=== PATIENT | female | born 1980 | race Caucasian/White ===

== ENCOUNTER 2025-02-21 11:23 | Outpatient (AMB) | payer OTHER, SELFPAY ==
--- NOTE | 2025-02-21 11:42 | A.OFFPC_ITS ---
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 Required: No Allergies cephalexin (From Keflex) Allergy (Mild, Verified 02/21/25 11:42) Hives Medication List - Last Reconciled 02/21/25 by Bri Quevedo PA-C enalapril maleate mg PO sertraline 25 mg PO DAILY Tobacco use date assessed: 02/21/25 Dental Screening Dental Screen Date: 02/21/25 Did you have a dental visit in the last 12 months?: Yes Did you have a dental problem in the last 6 months where you did not have access to dental care?: No Was dental information given to patient?: Patient has dentist HPI Referrals HPI Details Patient is a 44-year-old female with a significant past medical history of hypertension, obesity, generalized anxiety disorder, kidney stones and family history of breast cancer with a recent abnormal breast mammogram presenting today to establish care. Breast: Had a recent breast biopsy at the breast center and was told that it was normal. Has a follow up mammogram in 6 months. Uro: History of kidney stones and hematuria. Recently started with the increase hematuria again and is scheduled for an ultrasound on 03/04. Has follow up with [facility]. Needs an insurance referral. General: Does feel very tired and not rested. She states that her ex has been told her she has to stop breathing at times and her kids tell her that she snores all the time. CV: Blood pressure today in the office is 106/82. On enalapril 5 mg daily. Psych: Well-controlled with sertraline 25 mg Avionics Technician: Up-to-date Mammo: Up-to-date at [facility] Surgical History (Updated 02/21/25 @ 11:49 by Tamara López CMA) H/O breast augmentation H/O tubal ligation Family History (Updated 02/21/25 @ 11:52 by Tamara López CMA) Mother HTN (hypertension) High blood cholesterol Breast cancer Depression Father HTN (hypertension) High blood cholesterol Lung cancer Alcohol abuse Maternal Grandmother HTN (hypertension) Cardiovascular disease Breast cancer Lung cancer Maternal Grandfather HTN (hypertension) High blood cholesterol Bladder cancer Other FHx: mental illness Substance abuse Social History (Updated 02/21/25 @ 13:38 by Tamara López [facility]) Housing: Apartment Alcohol intake: current Patient Tobacco Use Status: Never used Tobacco e-Cigarette/Vaping Use: Never Used service: No Current occupational status: employed 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 1. Little interest or pleasure in doing things: not at all 2. Feeling down, depressed, or hopeless: not at all 3. Trouble falling or staying asleep, or sleeping too much: not at all 4. Feeling tired or having little energy: several days 5. Poor appetite or overeating: not at all 6. Feeling bad about yourself - or that you are a failure or have let yourself or your family down: not at all 7. Trouble concentrating on things, such as reading the newspaper or watching television: not at all 8. Moving or speaking so slowly that other people could have noticed. Or the opposite - being so fidgety or restless that you have been moving around a lot more than usual: not at all 9. Thoughts that you would be better off or of hurting yourself in some way: not at all Total score: 1 Depression Screening Interpretation: Negative Depression Screening Done: Yes 06549 - PHQ-9 Billing: Yes Source: Developed by Drs. Chava Hogan, Maribel More, Otto Ramsey and colleagues, with an educational vinny from [employer]. Thrive Questionnaire Date Thrive assessed: 02/21/25 I am a: Patient What is your living situation today?: I have a steady place to live Within the past 12 months, did the food you bought not last and you didn't have the money to get more?: Never true Within the past 12 months, did you worry whether your food would run out before you got money to buy more?: Never true Do you have trouble paying for medicines?: No Do you have trouble getting transportation to medical appointments?: No Do you have trouble paying your heating and electricity bill?: No Do you have trouble taking care of your child, family member or friend?: No Do you have trouble with day-to-day activities such as bathing, preparing meals, shopping, managing finances, etc.?: No Are you currently unemployed and looking for a job?: No Are you interested in more education?: No Please select the resources that you would like help with: None Currently or been in a relationship where the following occur: No concerns reported THRIVE Score: 0 AUDIT C Alcohol Use Questionnaire (AUDIT-C) 1. How often do you have a drink containing alcohol?: Monthly or less 2. How many drinks containing alcohol do you have on a typical day when you are drinking?: 1 or 2 3. How often do you have six or more drinks on one occasion?: Never Total Score: 1 EVER-7 AMB Questionnaire EVER-7 Date EVER - 7 assessed: 02/21/25 Feeling nervous, anxious, or on edge: 1 = Several days Not being able to stop or control worryin = Not at all Worrying too much about different things: 1 = Several days Trouble relaxin = Several days Being so restless that it is hard to sit still: 0 = Not at all Becoming easily annoyed or irritable: 2 = More than half the days Feeling afraid as if something awful might happen: 0 = Not at all Total EVER-7 score (0-4 normal; 5-9 mild; 10-14 moderate; 15-21 severe): 5 Source: Developed by Drs. Chava Hogan, Maribel More, Otto Ramsey and colleagues, with an educational vinny from [employer]. EVER-7 Assessment Billing EVER-7 Assessment Tool: EVER-7 Assessment 73563 Physical exam (Primary Care) Vital Signs: Last Vital Signs Temp 97.8 F 02/21/25 11:45 Pulse 78 02/21/25 11:45 Resp 14 02/21/25 11:45 BP 106/82 02/21/25 11:45 Pulse Ox 98 02/21/25 11:45 Oxygen Delivery Method Room Air 02/21/25 11:45 BMI result Body Mass Index 40.3 Tobacco/Smoking Status: Tobacco use Status Tobacco use date assessed 02/21/25 02/21/25 13:39 Patient Tobacco Use Status Never used Tobacco 02/21/25 13:39 e-Cigarette/Vaping Use Never Used 02/21/25 13:39 PHQ-9: PHQ-9 Score PHQ-9: Total score 1 02/21/25 15:39 Depression Screening Interpretation: Negative Thrive Assessment: Date of Thrive Assessment Date Thrive assessed 02/21/25 02/21/25 11:52 Currently or been in a relationship where the following occur: No concerns reported Const Orientation/consciousness: patient oriented x3 HENMT Ears: hearing grossly normal bilaterally Neck Thyroid: Thyroid normal Lymphatic: no lymphadenopathy noted Resp Auscultation: clear to auscultation bilaterally Cardio Rate: regular rate Rhythm: regular rhythm Heart sounds: S1 normal heart sound present and S2 normal heart sound present GI Inspection: Yes normal to inspection Palpation (GI): Soft to palpation and Other GI palpation findings present (nontender, no cva tenderness) Auscultation: normoactive bowel sounds Rectal Exam - Female: deferred Skin General skin exam: no rashes or lesions noted Neuro General: patient oriented x3, gait normal and no focal motor deficits Coding Level of Care Code New Pt Level 4 (20123) Complex EM visit Add On G2211 Diagnoses Severe obesity (BMI >= 40) E66.01 HTN (hypertension) I10 Witnessed episode of apnea R06.81 Fatigue R53.83 Generalized anxiety disorder F41.1 Kidney stones N20.0 Abnormal mammogram of left breast R92.8 Additional Codes EVER-7 Assessment Billing - EVER-7 Assessment Tool: EVER-7 Assessment 89780 ([id number]) PHQ-9 - 52063 - PHQ-9 Billing: Yes ([id number]) Assessment & Plan Assessment & Plan (1) Severe obesity (BMI >= 40): Code(s): E66.01 - Morbid (severe) obesity due to excess calories Category: Medical Plan: Discussed diet and weight loss. We also reviewed GLP ones (2) HTN (hypertension): Code(s): I10 - Essential (primary) hypertension Category: Medical Plan: Continue current regimen (3) Witnessed episode of apnea: Code(s): R06.81 - Apnea, not elsewhere classified Category: Medical Plan: Sleep study and referral to sleep Medicine ordered (4) Fatigue: Code(s): R53.83 - Other fatigue Category: Medical Plan: As above. Labs ordered (5) Generalized anxiety disorder: Code(s): F41.1 - Generalized anxiety disorder Category: Medical Plan: Well-controlled continue current regimen (6) Kidney stones: Code(s): N20.0 - Calculus of kidney Category: Medical Plan: Referral to [facility] (7) Abnormal mammogram of left breast: Code(s): R92.8 - Other abnormal and inconclusive findings on diagnostic imaging of breast Category: Medical Plan: Continue follow up with breast center. Orders: Orders Comprehensive [place]. Panel Fast Today E66.01 - Morbid (severe) obesity due to excess calories, F41.1 - Generalized anxiety disorder, I10 - Essential (primary) hypertension, N20.0 - Calculus of kidney, R06.81 - Apnea, not elsewhere classified, R53.83 - Other fatigue, R92.8 - Other abnormal and inconclusive findings on diagnostic imaging of breast, Z80.3 - Family history of malignant neoplasm of breast Lipid Panel Today E66.01 - Morbid (severe) obesity due to excess calories, F41.1 - Generalized anxiety disorder, I10 - Essential (primary) hypertension, N20.0 - Calculus of kidney, R06.81 - Apnea, not elsewhere classified, R53.83 - Other fatigue, R92.8 - Other abnormal and inconclusive findings on diagnostic imaging of breast, Z80.3 - Family history of malignant neoplasm of breast UA CC w/rflx Micro + Cult Today E66.01 - Morbid (severe) obesity due to excess calories, F41.1 - Generalized anxiety disorder, I10 - Essential (primary) hypertension, N20.0 - Calculus of kidney, R06.81 - Apnea, not elsewhere classified, R53.83 - Other fatigue, R92.8 - Other abnormal and inconclusive findings on diagnostic imaging of breast, Z13.220 - Encounter for screening for lipoid disorders, Z80.3 - Family history of malignant neoplasm of breast Hemoglobin A1c Today E66.01 - Morbid (severe) obesity due to excess calories, F41.1 - Generalized anxiety disorder, I10 - Essential (primary) hypertension, N20.0 - Calculus of kidney, R06.81 - Apnea, not elsewhere classified, R53.83 - Other fatigue, R73.01 - Impaired fasting glucose, R92.8 - Other abnormal and inconclusive findings on diagnostic imaging of breast, Z80.3 - Family history of malignant neoplasm of breast Complete Blood Count Auto Diff Today E66.01 - Morbid (severe) obesity due to excess calories, F41.1 - Generalized anxiety disorder, I10 - Essential (primary) hypertension, N20.0 - Calculus of kidney, R06.81 - Apnea, not elsewhere classified, R53.83 - Other fatigue, R92.8 - Other abnormal and inconclusive findings on diagnostic imaging of breast, Z80.3 - Family history of malignant ne oplasm of breast TSH reflex Free T4 Today E66.01 - Morbid (severe) obesity due to excess calories, F41.1 - Generalized anxiety disorder, I10 - Essential (primary) hypertension, N20.0 - Calculus of kidney, R06.81 - Apnea, not elsewhere classified, R53.83 - Other fatigue, R92.8 - Other abnormal and inconclusive findings on diagnostic imaging of breast, Z80.3 - Family history of malignant neoplasm of breast Microalbumin, Random (w Creat) Today E66.01 - Morbid (severe) obesity due to excess calories, F41.1 - Generalized anxiety disorder, I10 - Essential (primary) hypertension, N20.0 - Calculus of kidney, R06.81 - Apnea, not elsewhere classified, R53.83 - Other fatigue, R92.8 - Other abnormal and inconclusive findings on diagnostic imaging of breast, Z80.3 - Family history of malignant neoplasm of breast RT home sleep study Today R06.81 - Apnea, not elsewhere classified Referrals Sleep Medicine Referral E66.01 - Morbid (severe) obesity due to excess calories, R06.81 - Apnea, not elsewhere classified, R53.83 - Other fatigue Urology Referral N20.0 - Calculus of kidney
[2025-02-21 11:45] VITALS: BP 106/82; PULSE 78; RESP 14; TEMP 36.6; O2SAT 98; BMI 40.3
--- OUTSIDE RECORDS SUMMARY | 2025-02-21 12:11 | XMS_ITS | Clinical Summary ---
Author Organization [facility] Address [address] [place] [address] Care Team Providers Care Hl7 Developer Name Role Phone Renetta Aguero MD Primary Care Provider Unav ailable Allergies Active Allergy Reactions Criticality Noted Date Comments Cephalexin Rash Low 02/08/2023 Lobster 03/28/2024 Shrimp Anaphylaxis High 02/08/2023 Medications Medication Sig Dispensed Refills Start Date End Date Status sertraline (ZOLOFT) 25 MG tablet Take 1 tablet (25 mg total) by mouth daily. 0 08/23/2023 Active Probiotic Product (PROBIOTIC PO) Take by mouth. 0 Active Multiple Vitamin (MULTI VITAMIN PO) Take by mouth. 0 Ac tive enalapril (VASOTEC) 5 MG tablet Take 1.5 tablets (7.5 mg total) by mouth daily. 135 tablet 1 05/03/2024 Active Active Problems No known active problems Family History Medical History Relation Name Comments Anxiety disorder Brother Alcohol abuse Father Cancer Father Lung Drug abuse Father Hypertension Father Cancer Maternal Grandfather Hyperlipidemia Maternal Grandfather Hypertension Maternal Grandfather Cancer Maternal Grandmother Heart disease Maternal Grandmother Hyperlipidemia Maternal Grandmother Hypertension Maternal Grandmother Stroke Maternal Grandmother Cancer Mother Breast Hyperlipidemia Mother Hypertension Mother Alcohol abuse Sister Depression Sister Drug abuse Sister Relation Name Status Comments Brother Father Alive Maternal Grandfather Maternal Grandmother Mother Alive Paternal Grandfather Paternal Grandmother Sister Social History Tobacco Use Types Packs/Day Years Used Date Smoking Tobacco: Never Smokeless Tobacco: Never Tobacco Cessation:Counseling Given: Not Answered Alcohol Use Standard Drinks/Week Comments Yes 0 (1 standard drink = 0.6 oz pur e alcohol) rare Sex and Gender Information Value Date Recorded Sex Assigned at Female 08/31/2023 10:34 AM EST Gender Identity Female 08/31/2023 10:34 AM EST Sexual Orientation Not on file Job Start Date Occupation Industry Not on file Not on file Not on file Last Filed Vital Signs Vital Sign Reading Time Taken Comments Blood Pressure 130/82 05/01/2024 4:14 PM EDT man ual Pulse 93 05/01/2024 4:14 PM EDT Temperature 36.8 C (98.2 F) 05/01/2024 4:14 PM EDT Respiratory Rate - - Oxygen Saturation 98% 05/01/2024 4:14 PM EDT Inhaled Oxygen Concentration - - Weight 97.1 kg (214 lb) 05/01/2024 4:14 PM EDT Height 160 cm (5' 3 ) 05/01/2024 4:14 PM EDT Body Mass Index 37.91 05/01/2024 4:14 PM EDT Plan of Treatment Health Maintenance Due Date Last Done Comments Hepatitis B Vaccines (1 of 3 - 3-dose series) 1981 Hepatitis C Screening 1981 Preventative Health Evaluation 11/25/1999 DTap / Tdap / Td (1 - Tdap) 2000 Cervical Cancer Screening (Pap Smear) 2002 COVID-19 Vaccine ( season) 2024 11/25/2020, 11/04/2020 Depression Screening 11/15/2024 11/16/2023 BMI Counseling 03/28/2025 03/28/2024, 11/21, 11/16/2023 Influenza Vaccine (Season Ended) 2025 07/19/2023, 06/18/2022, 06/28/2019, Additional history exists Pneumococcal Vaccine Aged Out No long er eligible based on patient's age to complete this topic RSV Ped < 20 months Aged Out No longe r eligible based on patient's age to complete this topic Insurance Payer Benefit Plan / Group Subscriber ID Effective Dates Phone Address [facility] [id number] 2022-Re [address] [facility] [address] [place] [address] HMO Care Teams Hl7 Developer Relationship Specialty Start Date End Date Renetta Aguero MD PCP - General Internal Medicine 11/16/23
--- OUTSIDE RECORDS SUMMARY | 2025-02-21 12:11 | XMS_ITS | Data Portability ---
Author Organization [place] [facility] Address [address] [place] [id number] Care Team Providers Care Security Architect Name Role Phone ZACK BURDICK Primary Care Provider Assessment Encounter Date Assessment Date Assessment LastModified by Organization Details LastModified Time 08/16/2021 08/16/2021 Proper Personal Protective Equipment (PPE), including gloves, eye protection and masks were donned and doffed appropriately and all equipment cleaned using approved technique with germicidal disposable wipes prior to and after care of this patient according to [facility]'s infection prevention protocols. Overview/History : 40 yo female with 5 days of left ear pain seen by urgent care who prescribed sour candies and flonse which has not provided any benefit. She called as they appearance and soreness continue to worsen Exam: left external ear with edema and mild erythema, left canal with edema and mild erythema, left TM with mild bulge and fluid level beyond it. no erythema/ exudate noted in oropharynx, moist mucous membranes, solitary enlarged cervical LN on the left inferior to the ear. NO MASTOID TENDERNESS. R sided Ear exam wnl DDx considered, but not limited to: AOM - most likley dx given exam AOE - most likley dx given exam Mastoiditis - no headache, no mastoid tenderness or erythema Parotitis/saliva ry gand swelling - angle of jaw not involved, no facial swelling lymphadenitis - solitary swollen lymph node most likely reactive in nature Work up/Results: N/A Plan/Discussion: -pt appears to have AOE and AOM on exam -nontoxic appearing NAD AVSS -will tx with po abx and topical gtts -doxycyline and Kieran/HC/Polym gtts -if appearance worsens, headaches begin, fevers develop, or mastoid becomes tender seek emergent re-eval In order to obtain further information and compare any laboratory results/values, I have accessed . This information was pertinent in my medical decision making today. [email or web address] Not available 08/16/2021 11:21:16 Plan of Treatment Reminders Order Date Submit Date Provider Last Modified By Organization Details Last Modified Time Details Appointments None recorded. Lab None recorded. Referral None recorded. Procedures None recorded. Surgeries None recorded. Imaging None recorded. Medication Orders neomycin-po lymyxin-hyd rocort 3.5 mg-10,000 unit/mL-1 % ear drops,susp 2020 [facility][id number], [address] [place], [address], 11:02:56 doxycycline hyclate 100 mg capsule 2020 [facility]armacy #[id number], [address] [place], [address], 11:02:56 Patient TargetsNo targets recorded. Patient Instructions Encounter Date Encounter Id Patient Instructions Last Modified By Organization Details Last Modified Time 08/16/2021 [id number] Thank you for yo ur visit with [facility] today. We cannot always find the exact cause of your symptoms during your initial visit. Please follow up with your primary care provider or specialist to be rechecked or seek medical attention if your symptoms do not go away or get worse. If you develop any new or worsening symptoms and need after hours care, please go to nearest ER and/or call 911. If you have additional concerns or develop a change in your condition between 8am-10pm, please call [facility] at [phone] to help navigate your care. [email or web address] Not available 08/16/2021 10:52:42 Reason for Referral None Reported. Medical Equipment None Reported. Medications Name Sig Start Date Stop Date Status Note LastModified by Organization Details LastModified Time acetaminophen 325 mg tablet active Not Available Not Availabl e Not Available doxycycline hyclate 100 mg capsule Take 1 capsule twice a day by oral route for 7 days. active Not Available Not Available No t Available ibuprofen 800 mg tablet active Not Available Not Available No t Available fluconazole 150 mg tablet TAKE 1 TABLET BY MOUTH. REPEAT AFTER 48 HOURS. active Not Available Not Available No t Available metronidazole 0.75 % (37.5 mg/5 gram) vaginal gel active Not Available Not Available Not Available ondansetron HCl 4 mg tablet TAKE 1 TABLET EVERY 8 HOURS NEEDED FOR SEVERE NAUSEA & VOMITING active Not Available Not Available No t Available metronidazole 250 mg tablet active Not Available Not Availabl e Not Available sulfamethoxazo le 800 mg-trimethopri m 160 mg tablet active Not Available Not Available Not Available hydromorphone 2 mg tablet active Not Available Not Available Not Available sertraline 25 mg tablet TAKE 1 TABLET BY MOUTH EVERY DAY active Not Available Not Available No t Available levofloxacin 750 mg tablet active Not Available Not Availabl e Not Available sertraline 50 mg tablet active Not Available Not Available No t Available lisinopril 2.5 mg tablet TAKE 1 TABLET BY MOUTH EVERY DAY active Not Available Not Available No t Available neomycin-polym yxin-hydrocort 3.5 mg-10,000 unit/mL-1 % ear drops,susp INSTILL 4 DROPS INTO LEFT EAR BY OTIC ROUTE 3 TIMES PER DAY FOR 7 DAYS active Not Available Not Available No t Available Incassia 0.35 mg tablet active Not Available Not Available No t Available Vitals Date Recorded Body temperature Respiratory rate Oxygen saturation Oxygen saturation in Arterial blood by Pulse oximetry Heart rate Systolic And Diastolic Provider Name and Address Organization Details Last Updated DateTime 1 97.3 [degF] 16 /min 98 % 98 % 82 /min 128/80 mm[Hg] Not Available [facility] 1 10:59:02 Social History None recorded. Functional Status None recorded. Mental Status None recorded. Family History Nothing Reported. Medical History No medical history recorded. Gynecological HistoryNo gynecological history recorded. Obstetrics History GPAL:G 0 P 0 0 0 0 Past Encounters Encounter ID Performer Location Encounter Start Date Encounter Closed Date Diagnosis/Indication Diagnosis SNOMED-CT Code Diagnosis ICD10 Code Diagnosis Note [id number] BEREKET Osullivan [facility] [address] [facility] [phone] 08/16/2021 10:51:21 08/16/2021 11:30:38 Otitis externa of left ear [id number] 931339 H60.92 Acute otitis media 63631 03 H66.92 Health Concerns Section Related Observation LastModified by Organization Sony larry LastModified Time None Recorded Concern Status LastModified by Organization Details LastModified Time None Recorded Advance Directives Directive None Recorded Payers Insurance Date Sequence Insurance Name Policy Number Policy Rao Covered Member ID Rao Member ID Guarantor Name 08/16/2021 1 *SELF PAY* Aleah Padron [id number] Aleah Padron 08/16/2021 1 LEXIE [id number] Chilo Padron [id number] Aleah Nereida Notes Date Note Type Note Provider Name and Address Organization Details Recorded Time 08/16/2021 text/html 40 yo female new to provider and DHshe reprots LEFT ear painstarted tuesday (5 days earlier)went to urgent care 3 days agotx her with flonase and sour candiespt feels it is getting worseno fevers chillsno hx of similar symptomshas not had an recent piercings or trauma to the [place] swimming BEREKET Osullivan [address], [place], [address], [place] [facility] 08/16/2021 11:21:27 OBGyn Episode No OBEpisode recorded.
--- OUTSIDE RECORDS SUMMARY | 2025-02-21 12:11 | XMS_ITS ---
Author Name [facility] Organization Unknown History of Medication Use Medication Directions Dispensed Refills Start Date End Date Stat us sertraline (ZOLOFT) 25 mg tablet Take 1.5 tablets (37.5 mg total) by mouth 1 (one) time each day. 11/15/2024 active enalapril (VASOTEC) 5 mg tablet TAKE 1 & 1/2 TABLETS BY MOUTH DAILY. 11/13/2024 active sertraline (ZOLOFT) 25 mg tablet Take 1 tablet (25 mg total) by mouth 1 (one) time each day. 08/28/2024 11/15/2024 aborted moexipril (UNIVASC) 7.5 MG tablet Take 1 tablet (7.5 mg total) by mouth every night at bedtime. 12/13/2023 03/28/2024 active sertraline (ZOLOFT) 25 MG tablet Take 1 tablet (25 mg total) by mouth daily. 08/23/2023 active sertraline (ZOLOFT) 25 MG tablet Take 1 tablet (25 mg total) by mouth daily. 08/23/2023 active lisinopril (PRINIVIL,ZeSTRIL) 2.5 MG tablet lisinopril 2.5 mg tablet TAKE 1 TABLET BY MOUTH EVERY DAY active Multiple Vitamin (MULTI VITAMIN PO) Take by mouth. ac tive multivitamin tablet Take by mouth. active Allergies Allergen Reaction Severity Comment Documented Date Source Statu s LOBSTER 03/28/2024 [facility] active SHRIMP ANAPHYLAXIS 02/08/2023 [facility] active CEPHALEXIN RASH/DERMATITIS [facility] Problems Problem Status Onset Date Problem Type Date of Resolution Source Generalized anxiety disorder active 2024-11-15 ProblemAct [facility] Primary hypertension active 2024-11-15 ProblemAct [facility] Primary hypertension active EncounterDiagnosisAct [facility]JM H Depression, unspecified depression type active EncounterDiagnosisAct CTT [facility] Sore throat active EncounterDiagnosisAct CCT Strep pharyngitis [facility] Immunizations Vaccine Date Source Lot Number Status Influenza trivalent, 0.5mL, preservative free (Fluarix; FluLaval; Fluzone) ages 6mo and older (Afluria) 3 years and older 07/19/20[address] [facility] [id number] completed Tdap Tetanus diptheria acell ular pertussis (Boostrix; Adacel) 7yo and older 07/19/2023 [facility] [id number] completed Influenza trivalent, with pr eservative (Fluzone; Afluria) 6mo and older 06/18/2022 [facility] [id number] completed Better Bean SARS-CoV-2 COVID-19, mRNA, LNP-S, preservative free [id number] Better Bean SARS-CoV-2 COVID-19, mRNA, LNP-S, preservative free 11/04/2020 [id number] completed Influenza trivalent, with pr eservative (Fluzone; Afluria) 6mo and older 06/28/2019 [facility] [id number] completed Influenza Whole 05/18/2019 [facility] UNK completed Influenza trivalent, with pr eservative (Fluzone; Afluria) 6mo and older 06/26/2018 [facility] [id number] completed Influenza trivalent, with pr eservative (Fluzone; Afluria) 6mo and older 06/27/2017 [facility] UNK completed Influenza trivalent, with pr eservative (Fluzone; Afluria) 6mo and older 06/03/2016 [facility] [id number] completed Influenza trivalent, with pr eservative (Fluzone; Afluria) 6mo and older 10/21/2011 [facility] [id number] completed Tdap Tetanus diptheria acell ular pertussis (Boostrix; Adacel) 7yo and older 10/21/2011 [facility] [id number] completed Encounters Encounter Type Encounter Reason Primary Diagnosis Location Date Ambulatory Encounter for general adult medical examination without abnormal findings Encounter for general adult medical examination without abnormal findings [facility] 11/15/2024 Ambulatory Essential (primary) hypertension Essential (primary) hypertension [facility] 03/28/2024 Ambulatory Streptococcal pharyngitis [place] 02/08/2023 Care Team Organization Name Specialty Phone Email Start Date End Da te [facility]/20/2024 [facility] 11/15/2024 [facility] 03/30/2024 [facility] 03/28/2024 [place] 02/08/2023 02/08/2023 [place] 02/08/2023
== END 2025-02-21 12:41 | disposition home or self-care (01) ==
LOC: HO.HMCFM 11:24
PROVIDERS: PCP Physician Assistant; Visit Provider Physician Assistant
DX: I10 Essential (primary) hypertension (principal); E66.01 Morbid (severe) obesity due to excess calories; Z68.41 Body mass index [BMI] 40.0-44.9, adult; R06.81 Apnea, not elsewhere classified; R53.83 Other fatigue; F41.1 Generalized anxiety disorder; N20.0 Calculus of kidney; R92.8 Other abnormal and inconclusive findings on diagnostic imaging of breast

== ENCOUNTER → 2025-02-21 11:23 | Outpatient (BNVA) | payer OTHER, SELFPAY | PROVIDERS: PCP Physician Assistant; Visit Provider Physician Assistant | DX: I10 Essential (primary) hypertension (principal); E66.01 Morbid (severe) obesity due to excess calories; F41.1 Generalized anxiety disorder; R06.81 Apnea, not elsewhere classified; R53.83 Other fatigue; R92.8 Other abnormal and inconclusive findings on diagnostic imaging of breast; N20.0 Calculus of kidney; Z68.41 Body mass index [BMI] 40.0-44.9, adult | CPT/HCPCS: 96127 ==

== ENCOUNTER 2025-03-13 09:06 | Outpatient (REF) | payer OTHER, SELFPAY ==
--- OUTSIDE RECORDS SUMMARY | 2025-03-13 09:36 | XMS_ITS | Clinical Summary ---
Author Organization [facility] Address [address] [place] [id number] Care Team Providers Care X Ray Physician Name Role Phone Pcp, No Primary Care Provider Unavailabl e Allergies Active Allergy Reactions Criticality Noted Date Comments Cephalexin Rash/Dermatitis Low 02/08/2023 Other, Food Anaphylaxis High 02/08/2023 cradb Shrimp Anaphylaxis High 02/08/2023 Medications sertraline (ZOLOFT) 50 MG tablet sertraline 50 mg tablet Active lisinopril (PRINIVIL,ZeSTRI L) 2.5 MG tablet lisinopril 2.5 mg tablet TAKE 1 TABLET BY MOUTH EVERY DAY Active amoxicillin (AMOXIL) 500 MG capsuleIndicatio ns:Strep pharyngitis Take 1 capsule (500 mg total) by mouth 2 (two) times a day. 20 capsule 3 Active Social History Tobacco Use Types Packs/Day Years Used Date Smoking Tobacco: Never Assessed Comments Unknown Sex and Gender Information Value Date Recorded Sex Assigned at Female 02/08/2023 6:09 PM EDT Legal Sex Female 6:07 PM EDT Gender Identity Not on file Sexual Orientation Not on file Last Filed Vital Signs Vital Sign Reading Time Taken Comments Blood Pressure 144/93 02/08/2023 6:48 PM EDT Pulse 88 02/08/2023 6:48 PM EDT Temperature 36.7 C (98.1 F) 02/08/2023 6:48 PM EDT Respiratory Rate - - Oxygen Saturation 98% 02/08/2023 6:48 PM EDT Inhaled Oxygen Concentration - - Weight - - Height - - Body Mass Index - - Plan of Treatment Health Maintenance Due Date Last Done Comments Hepatitis C Virus Screening 1981 HIV Screening 1994 DTaP/Tdap/Td Vaccines (1 - Tdap) 2000 Hepatitis B Vaccines (1 of 3 - 19+ 3-dose series) 2000 Pap Smear (Ages 21-65) 2002 Mammogram 2021 COVID-19 Vaccine (3 - 2023- season) 2024 11/25/2020, 11/04/2020 Influenza Vaccine 03/22/2025 06/18/2022, , 05/18/2019, Additional history exists HPV Vaccines Aged Out No longer eligi ble based on patient's age to complete this topic Pneumococcal Vaccine: Pediatric (0-5 Years) and At-Risk Patients (6 to 49 Years) Aged Out No longer eligible based on patient's age to complete this topic Insurance [facility] Care Teams X Ray Physician Relationship Specialty Start Date End Date Pcp, No [address] [place] [address] PCP - General 02/07/23
--- OUTSIDE RECORDS SUMMARY | 2025-03-13 09:36 | XMS_ITS | Clinical Summary ---
Author Organization [facility] [address] Building Address [address] [place] [address] Phone Care Team Providers Care Psychological Aide Name Role Phone Renetta Aguero MD Primary Care Provider [phone] Allergies Active Allergy Reactions Criticality Noted Date Comments Cephalexin Rash Low 02/08/2023 Lobster 03/28/2024 Shrimp Anaphylaxis High 02/08/2023 Medications multivitamin tablet Take by mouth. Active Lactobacillus acidophilus (PROBIOTIC ORAL) Take by mouth. Active enalapril (VASOTEC) 5 mg tablet TAKE 1 & 1/2 TABLETS BY MOUTH DAILY. 135 tablet 1 11/13/2024 Active sertraline (ZOLOFT) 25 mg tablet Take 1.5 tablets (37.5 mg total) by mouth 1 (one) time each day. 135 tablet 1 11/15/2024 Active Active Problems Problem Noted Date Diagnosed Date Generalized anxiety disorder 11/15/2024 Primary hypertension 11/15/2024 Encounters Date Type Department Care Team Description 02/15/2025 Lab Requisition [facility] - Main Lab [address] [place] [id number] Harsha Hurtado MD Gross hematuria 01/28/2025 Telephone Internal Medicine - [place] [address] [place] [address] Blanquita Lemus MA from Last 3 Months Immunizations Name Administration Dates Next Due Influenza Whole 05/18/2019 Influenza trivalent, 0.5mL, preservative free (Fluarix; FluLaval; Fluzone) ages 6mo and older (Afluria) 3 years and older 07/19/2023 Influenza trivalent, with preservative (Fluzone; Afluria) 6mo and older 06/18/2022,06/28/2019,06/26/2018,2016,06/03/2016,10/21/2011 Pfizer SARS-CoV-2 COVID-19, mRNA, LNP-S, preservative free 11/25/2020,11/04/2020 Tdap Tetanus diptheria acell ular pertussis (Boostrix; Adacel) 7yo and older 07/19/2023,10/21/2011 Surgical History Surgery Date Site/Laterality Comments BREAST SURGERY PROCEDURE:BREAST SURGERY TUBAL LIGATION PROCEDURE:TUBAL LIGATION Medical History Medical History Date Comments Anxiety DX:Anxiety Depression DX:Depression Hypertension DX:Hypertension ADHD (attention deficit hyperactivity disorder) Obesity Family History Medical History Relation Name Comments Anxiety disorder Brother 1 Alcohol abuse Brother 2 Brother Drug abuse Brother 2 Brother Alcohol abuse Father Father Cancer Father Father Lung cancer Drug abuse Father Father Hypertension Father Father Cancer Maternal Grandfather Pop Bladder Hyperlipidemia Maternal Grandfather Pop Hypertension Maternal Grandfather Pop Breast cancer Maternal Grandmother Grandma Cancer Maternal Grandmother Grandma Breast, lung Heart disease Maternal Grandmother Grandma Hyperlipidemia Maternal Grandmother Grandma Hypertension Maternal Grandmother Grandma Stroke Maternal Grandmother Grandma Breast cancer Mother Mother Cancer Mother Mother Breast Depression Mother Mother Hyperlipidemia Mother Mother Hypertension Mother Mother Alcohol abuse Sister Depression Sister Drug abuse Sister Relation Name Status Comments Brother 1 Brother 2 Brother Father Father Alive Maternal Grandfather Pop Maternal Grandmother Grandma Mother Mother Alive Paternal Grandfather Paternal Grandmother Sister Social History Tobacco Use Types Packs/Day Years Used Date Smoking Tobacco: Never Smokeless Tobacco: Never Tobacco Cessation:Counseling Given: Not Answered Alcohol Use Standard Drinks/Week Comments Yes 2 (1 standard drink = 0.6 oz pur e alcohol) Housing Instability Answer Date Recorde d Are you worried that in the next 2 months you may not have stable housing? No 11/14/2024 Food Access & Nutrition Answer Date Rec orded Do you have access to a vari ety of food including fruits and vegetables? Yes 11/14/2024 Access to Healthcare Answer Date Record ed Within the last 3 months, ho w many times did you visit the emergency department for your medical care? 0 11/14/2024 Health Literacy Answer Date Recorded How often do you need to hav e someone help you when you read instructions, pamphlets, or other written material from your doctor or pharmacy? Never 11/14/2024 Caregiver: How often do you need to have someone help you when you read instructions, pamphlets, or other written material from your doctor or pharmacy? Not on file 11/14/2024 Financial Risk Answer Date Recorded How hard is it for you to pa y for the very basics like food, housing, medical care, and air conditioning / heating? Not very hard 11/14/2024 Transportation Answer Date Recorded Has the lack of transportati on kept you from meetings, work, or from getting things needed for daily living? No Has the lack of transportati on kept you from medical appointments or from getting medications? No 11/14/2024 Social Isolation Answer Date Recorded How often do you feel lonely or isolated from th ose around you? Rarely 11/14/2024 Food Risk Answer Date Recorded Within the past 12 months we worried whether our food would run out before we got money to buy more. Never true 11/14/2024 Within the past 12 months th e food we bought just didn't last and we didn't have money to get more. Never true 11/14/2024 Dependent Care Answer Date Recorded Do you need help finding or paying for care for your loved ones. For example, child and family services specialist or elderly care for an older adult? No 11/14/2024 Education Answer Date Recorded Do you think completing more education or training, like finishing a GED, going to college, or learning a trade, would be helpful for you? Yes 11/14/2024 Employment and Income Answer Date Recor ded During the last four weeks, have you been actively looking for work? No 11/14/2024 Living Situation Answer Date Recorded What is your living situation? 0 11/14/2024 Comments Unknown Sex and Gender Information Value Date Recorded Sex Assigned at Not on file Legal Sex Female 4:48 PM EDT Gender Identity Not on file Sexual Orientation Not on file Obstetrics History Last Filed Vital Signs Vital Sign Reading Time Taken Comments Blood Pressure 117/77 11/15/2024 8:20 AM EDT Pulse 81 11/15/2024 8:20 AM EDT Temperature 36.7 C (98 F) 11/15/2024 8:20 AM EDT Respiratory Rate - - Oxygen Saturation 98% 11/15/2024 8:20 AM EDT Inhaled Oxygen Concentration - - Weight 99.8 kg (220 lb) 11/15/2024 8:20 AM EDT Height 160 cm (5' 3 ) 11/15/2024 8:20 AM EDT Body Mass Index 38.97 11/15/2024 8:20 AM EDT Plan of Treatment Upcoming Encounters Date Type Department Care Team (Late st Contact Info) Description 05/21/2025 8:30 AM EDT Office Visit Internal Medicine - [place] [address] [place] [address] Renetta Aguero MD [address] [place] [address] Health Maintenance Due Date Last Done Comments Hepatitis B Vaccines (1 of 3 - 19+ 3-dose series) 2000 Cervical Cancer Screening: Pap Smear 2002 Cholesterol Screening (Lipid Panel) 03/20/2024 HIV Screening 03/20/2024 Hepatitis C Screening 03/20/2024 COVID-19 Vaccine ( season) 2024 11/25/2020, 11/04/2020 Hypertension/CHF/CAD Annual BMP Blood Test 03/28/2025 03/28/2024, 03/28/2024, 03/28/2024 Influenza Vaccine (#1) 2025 , 06/18/2022, 06/28/2019, Additional history exists Social Influencers of Health Screening 11/14/2025 11/14/2024 Breast Cancer Screening 12/21/2026 12/21/2024 DTaP,Tdap,and Td Vaccines (3 - Td or Tdap) 07/19/2033 07/19/2023, 10/21/2011 Depression Screening Completed 11/14/2024, 11/16/19 24 HIB Vaccines Aged Out No longer eligi ble based on patient's age to complete this topic HPV Vaccines Aged Out No longer eligi ble based on patient's age to complete this topic Hepatitis A Vaccines Aged Out No long er eligible based on patient's age to complete this topic IPV Vaccines Aged Out No longer eligi ble based on patient's age to complete this topic MMR Vaccines Aged Out No longer eligi ble based on patient's age to complete this topic Meningococcal ACWY Vaccine Aged Out N o longer eligible based on patient's age to complete this topic Meningococcal B Vaccine Aged Out No l onger eligible based on patient's age to complete this topic Pneumococcal Vaccine: Pediatrics (0 to 5 Years) and At-Risk Patients (6 to 49 Years) Aged Out No longer eligible based on patient's age to complete this topic RSV Immunization Patients Under 20 months Aged Out No longer eligible based on patient's age to complete this topic Varicella Vaccines Aged Out No longer eligible based on patient's age to complete this topic Procedures Procedure Name Priority Date/Time Associated Diagnosis Comments AP OUTSIDE CONSULT Routine 02/06/2025 12 :00 AM EDT Gross hematuria EXTERNAL MAMMOGRAM REPORT 12/21/2024 ANNUAL BMP BLOOD TEST Routine 03/28/2024 DEPRESSION SCREENING Routine 11/16/2023 from Last 3 Months or Most Recently Relevant to Health Maintenance Results * Anatomic pathology outside consult (02/06/2025 12:00 AM EDT) Final Diagnosis Urine, Voided ([id number]): Negative for high grade urothelial carcinoma. Results of UroVysion fluorescence in situ hybridization (FISH) testing: CEP3: Normal CEP7: Normal CEP17: Normal LSI 9p21: Normal Interpretation: Normal profile Controls stained appropriately. Note: The results are intended as a screening device and should be interpreted in association with other clinical and pathological findings. 03/04/2025 12:27 PM EDT [facility] Clinical Information Gross hematuria R31.0 Urine Cytology/FISH (now) 03/04/2025 12:27 PM EDT [facility] Gross Description A. Urine, Voided, ([id number]): Received one ThinPrep slide for cytology and one ThinPrep slide for UroVysion FISH 03/04/2025 12:27 PM EDT [facility] Disclaimer Unless otherwise specified, all tissue is 10% NB formalin fixed and paraffin embedded. Technical pathology services provided by [facility] at [address], [place] [address] (CLIA #[id number]/Tierra Sultana MD, Refinish Technician) 03/04/2025 12:27 PM EDT [facility] Tissue Urine specimen from urethra / Unknown 02/06/2025 02/15/2025 9:22 AM EDT Harsha Hurtado MD LAB PATHOLOGY ORDERABLES Fi nal Result [facility] [address] [place] [address], * External Mammogram Report (12/21/2024) Anatomical Region Laterality Modality Mammography Provider [facility] BI PROCEDURES Final Result * Annual BMP Blood Test (03/28/2024) Pathologist [facility] Annual BMP Blood Test abstracted Historical Provider HEALTH MAINTENANCE Final Result * Depression Screening (11/16/2023) Depression Screening abstracted Historical Provider HEALTH MAINTENANCE Final Result from Last 3 Months or Most Recently Relevant to Health Maintenance Insurance [facility] Care Teams Psychological Aide Relationship Specialty Start Date End Date Renetta Aguero MD [address] [place] [address] PCP - General 11/16/23
--- OUTSIDE RECORDS SUMMARY | 2025-03-13 09:36 | XMS_ITS | Clinical Summary ---
Author Organization [facility] Address [address] [place] [address] Care Team Providers Care Rampman Name Role Phone Renetta Aguero MD Primary [...] Counseling 03/28/2025 03/28/2024, 11/21, 11/16/2023 Influenza Vaccine (#1) 2025 , 06/18/2022, 06/28/2019, Additional history exists Pneumococcal Vaccine Aged Out No long er eligible based on patient's age to complete this topic RSV Ped < 20 months Aged Out No longe r eligible based on patient's age to complete this topic Insurance Payer Benefit Plan / Group Subscriber ID Effective Dates Phone Address [facility] [id number] 2022-Re mel[address] [facility] [place] [address] HMO Care Teams Rampman Relationship Specialty Start Date End Date Renetta Aguero MD PCP - General Internal Medicine 11/16/23
--- OUTSIDE RECORDS SUMMARY | 2025-03-13 09:36 | XMS_ITS | Data Portability ---
Author Organization [place] [facility] Address [address] [place] [id number] Care Team Providers Care Public Weigher Name Role Phone ZACK BURDICK Primary Care Provider [phone] Assessment Encounter Date Assessment Date Assessment LastModified by Organization Details LastModified Time 08/16/2021 08/16/2021 Proper Personal Protective Equipment (PPE), including gloves, eye protection and masks were donned and doffed appropriately and all equipment cleaned using approved technique with germicidal disposable wipes prior to and after care of this patient according to [facility]'s infection prevention protocols. Overview/History : 40 yo [...] pertinent in my medical decision making today. [email or web address] Not available 08/16/2021 11:21:16 Plan of Treatment Reminders Order Date Submit Date Provider Last Modified By Organization Details Last Modified Time Details Appointments None recorded. Lab None recorded. Referral None recorded. Procedures None recorded. Surgeries None recorded. Imaging None recorded. Medication Orders neomycin-po lymyxin-hyd rocort 3.5 mg-10,000 unit/mL-1 % ear drops,susp 2020 [facility][id number], [id number] [place], [address], 11:02:56 doxycycline hyclate 100 mg capsule 2020 [facility][id number], [id number] [place], [address], 11:02:56 Patient TargetsNo targets recorded. Patient Instructions Encounter Date Encounter Id Patient Instructions Last Modified By Organization Details Last Modified Time 08/16/2021 [id number] Thank you for yo ur visit with [facility] today. We cannot always find the exact [...] in your condition between 8am-10pm, please call [facility] at [phone] to help navigate your care. [email or web address] Not available 08/16/2021 10:52:42 Reason for Referral [...] SNOMED-CT Code Diagnosis ICD10 Code Diagnosis Note [id number] [facility] [address] [id number] 08/16/2021 10:51:21 08/16/2021 11:30:38 Otitis externa of left ear [id number] H60.92 Acute otitis media 31208 03 H66.92 Health Concerns Section Related Observation LastModified by Organization Sony larry LastModified Time None Recorded Concern Status LastModified by Organization Details LastModified Time None Recorded Advance Directives Directive None Recorded Payers Insurance Date Sequence Insurance Name Policy Number Policy Rao Covered Member ID Rao Member ID Guarantor Name 08/16/2021 1 *SELF PAY* Aleah Padron [id number] Aleah Padron 08/16/2021 1 LEXIE [id number] Chilo Padron [id number] Aleah Nereida Notes Date Note Type Note [...] areano swimming [facility] [address], [place], [address], [place] [facility] 08/16/2021 11:21:27 OBGyn Episode No OBEpisode recorded.
[2025-03-13 13:21] LABS: MANUAL DIFF FLAG NO
[2025-03-13 13:39] LABS: Hematocrit 39.7 % (37.0-47.0); Hemoglobin 13.6 g/dl (12.0-16.0); Imm Gran Abs Auto 0.02 X10*3/uL (0.00-0.03); Imm Gran Pct Auto 0.3 % (0.0-0.4); Lymphocytes Absolute Auto 2.2 X10*3/uL (1.2-4.9); Mean Corpuscular HGB Conc 34.3 g/dl (31.0-35.0); Mean Corpuscular Hemoglobin 31.0 pg (27.0-33.0); Mean Corpuscular Volume 90.4 fL (80.0-98.0); NRBC Abs Auto 0.000 X10*3/uL (0.0-0.012); NRBC Pct Auto 0.0 /100WBC (0.0-0.2); Platelet Count 360 X10*3/uL (160-400); Red Blood Count 4.39 X10*6/uL (4.20-5.50); White Blood Count 7.9 X10*3/uL (4.8-10.8)
[2025-03-13 13:43] LABS: Hemoglobin A1C 116.7670 umol/L; Total Hemoglobin (HGBA1C) 3502.1362 umol/L
[2025-03-13 13:44] LABS: Appearance Urine Clear; Glucose Urine UA Negative (Negative); PH 7.0 (5.0-9.0); Specific Gravity - Urine 1.020 (1.005-1.025); UMIC TRIGGER UACC YES
[2025-03-13 13:55] LABS: Alanine Aminotransferase 17 U/L (0-31); Albumin Level 4.3 g/dL (3.5-5.0); Alkaline Phosphatase 41 U/L (39-117); Anion Gap 11 (12-20); Aspartate Amino Transferase 20 U/L (5-31); Blood Urea Nitrogen 10 mg/dL (9-16); Calcium 9.1 mg/dL (8.4-10.2); Carbon Dioxide 26 mmol/L (22-29); Chloride 106 mmol/L (96-108); Cholesterol 190 mg/dL (<200); Estimated Glomerular Filt Rate > 60; HDL Cholesterol 50 mg/dL (>40); Potassium 4.4 mmol/L (3.3-5.1); Sodium 139 mmol/L (135-145); Total Protein 6.8 g/dL (6.5-8.0); Triglycerides 85 mg/dL (<150)
[2025-03-13 14:24] LABS: Microalbum/Creatinine Ratio Ur 140.9 ug/mg cr (<30)
== END 2025-03-13 09:07 | disposition home or self-care (01) ==
LOC: HO.HKASLDS 09:06
PROVIDERS: Visit Provider Physician Assistant
DX: Z13.220 Encounter for screening for lipoid disorders (principal); I10 Essential (primary) hypertension; E66.01 Morbid (severe) obesity due to excess calories; F41.1 Generalized anxiety disorder; N20.0 Calculus of kidney; R06.81 Apnea, not elsewhere classified; Z80.3 Family history of malignant neoplasm of breast; R92.8 Other abnormal and inconclusive findings on diagnostic imaging of breast; R73.01 Impaired fasting glucose; R53.83 Other fatigue
CPT/HCPCS: 36415; 80053; 80061; 81001; 82043; 82570; 83036; 84443; 85025

== ENCOUNTER 2025-03-21 13:48 | Outpatient (AMB) | payer OTHER, SELFPAY ==
--- NOTE | 2025-03-21 13:50 | A.OFFPC_ITS ---
Vital Signs 03/21/25 13:53 Height 5 ft 3 in Weight 224 lb 4 oz BMI 39.7 BP 110/82 Blood Pressure Location Lt brachial Position Sitting Respiration 12 Pulse 82 Pulse Source Pulse Oximeter Pulse Oximetry (%) 97 Oxygen Delivery Method Room Air Intake Visit Reasons: f/u Referrals /Labs Intake Note: Follow up. Lab results. Paradichlorobenzene Machine Operator Required: No Allergies cephalexin (From Keflex) Allergy (Mild, Verified 03/21/25 13:52) Hives Medication List - Last Reconciled 03/21/25 by Bri Quevedo PA-C enalapril maleate mg PO sertraline 25 mg PO DAILY Tobacco use date assessed: 02/21/25 Dental Screening Dental Screen Date: 02/21/25 HPI f/u Referrals /Labs HPI Details Patient is a 44-year-old female with a significant past medical history of hypertension, obesity, generalized anxiety disorder, kidney stones and family history of breast cancer with a recent abnormal breast mammogram presenting today for a follow up. -She is booked in April for sleep me dicine for possible sleep apnea. General: She states that she is ready to try something for her weight. She says her insurance will cover this. She has been working hard on a low carb, low sugar diet and exercising. She says that she has only lost a few lb with this in his frustrated. She has tried many diets in the past and has been unsuccessful. In the past she has tried Ozempic and metformin and has felt very sick with this medication. Ozempic caused nausea and constipation specifically. She is not a good candidate for phentermine given her history of hypertension and anxiety disorder. She is currently well managed with her mental health and would not benefit from Wellbutrin. Breast: Had a recent breast biopsy at the breast center and was told that it was normal. Has a follow up mammogram in 6 months. Uro: History of kidney stones and hematuria. She is following with [facility]. Recently noted to have proteinuria. CV: Blood pressure today in the office is 110/82. On enalapril 5 mg daily. 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: Up-to-date Mammo: Up-to-date at [facility] Surgical History (Updated 02/21/25 @ 11:49 by Tamara López CMA) H/O breast augmentation H/O tubal ligation Family History (Updated 02/21/25 @ 11:52 by Tamara López CMA) Mother HTN (hypertension) High blood cholesterol Breast cancer Depression Father HTN (hypertension) High blood cholesterol Lung cancer Alcohol abuse Maternal Grandmother HTN (hypertension) Cardiovascular disease Breast cancer Lung cancer Maternal Grandfather HTN (hypertension) High blood cholesterol Bladder cancer Other FHx: mental illness Substance abuse Social History (Updated 02/21/25 @ 13:38 by Tamara López CMA) Housing: Apartment Alcohol intake: current Patient Tobacco Use Status: Never used Tobacco e-Cigarette/Vaping Use: Never Used service: No Current occupational status: employed 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 Current occupational exposures/hazards: No Cognitive needs: No Hearing needs: No Vision needs: No Questionnaire Thrive Questionnaire Date Thrive assessed: 02/21/25 I am a: Patient What is your living situation today?: I have a steady place to live Within the past 12 months, did the food you bought not last and you didn't have the money to get more?: Never true Within the past 12 months, did you worry whether your food would run out before you got money to buy more?: Never true Do you have trouble paying for medicines?: No Do you have trouble getting transportation to medical appointments?: No Do you have trouble paying your heating and electricity bill?: No Do you have trouble taking care of your child, family member or friend?: No Do you have trouble with day-to-day activities such as bathing, preparing meals, shopping, managing finances, etc.?: No Are you currently unemployed and looking for a job?: No Are you interested in more education?: No Please select the resources that you would like help with: None Currently or been in a relationship where the following occur: No concerns reported THRIVE Score: 0 EVER-7 AMB Questionnaire EVER-7 Date EVER - 7 assessed: 02/21/25 Source: Developed by Drs. Chava Hogan, Maribel More, Otto Ramsey and colleagues, with an educational vinny from [employer]. Physical exam (Primary Care) Vital Signs: Last Vital Signs Pulse 82 03/21/25 13:53 Resp 12 03/21/25 13:53 BP 110/82 03/21/25 13:53 Pulse Ox 97 03/21/25 13:53 Oxygen Delivery Method Room Air 03/21/25 13:53 BMI result Body Mass Index 39.7 Tobacco/Smoking Status: Tobacco use Status Tobacco use date assessed 02/21/25 03/21/25 13:52 Patient Tobacco Use Status Never used Tobacco 03/21/25 13:52 e-Cigarette/Vaping Use Never Used 03/21/25 13:52 Thrive Assessment: Date of Thrive Assessment Date Thrive assessed 02/21/25 03/21/25 13:52 Currently or been in a relationship where the following occur: No concerns reported Const Orientation/consciousness: patient oriented x3 HENMT Ears: hearing grossly normal bilaterally Neck Thyroid: Thyroid normal Lymphatic: no lymphadenopathy noted Resp Auscultation: clear to auscultation bilaterally Cardio Rate: regular rate Rhythm: regular rhythm Heart sounds: S1 normal heart sound present and S2 normal heart sound present GI Inspection: Yes normal to inspection Palpation (GI): Soft to palpation and Other GI palpation findings present (nontender, no cva tenderness) Auscultation: normoactive bowel sounds Rectal Exam - Female: deferred Skin General skin exam: no rashes or lesions noted Neuro General: patient oriented x3, gait normal and no focal motor deficits Coding Level of Care Code Est Pt Level 4 (14488) Complex EM visit Add On G2211 Diagnoses HTN (hypertension) I10 Severe obesity (BMI >= 40) E66.01 Generalized anxiety disorder F41.1 Witnessed episode of apnea R06.81 Assessment & Plan Assessment & Plan (1) HTN (hypertension): Code(s): I10 - Essential (primary) hypertension Category: Medical Plan: Continue current regimen (2) Severe obesity (BMI >= 40): Code(s): E66.01 - Morbid (severe) obesity due to excess calories Category: Medical Plan: We will try Zepbound. Discussed risks and benefits and adverse effects of this medication. (3) Generalized anxiety disorder: Code(s): F41.1 - Generalized anxiety disorder Category: Medical Plan: Continue sertraline (4) Witnessed episode of apnea: Code(s): R06.81 - Apnea, not elsewhere classified Category: Medical Plan: Has sleep study and consult scheduled Medications: New tirzepatide (weight loss) (Zepbound) for 4 weeks 2.5 mg (0.5 mL) subcut QWEEK 2 mL 1RF ondansetron HCl 4 mg PO Q8H PRN 30 tabs 0RF nausea and vomiting
[2025-03-21 13:53] VITALS: BP 110/82; PULSE 82; RESP 12; O2SAT 97; BMI 39.7
--- OUTSIDE RECORDS SUMMARY | 2025-03-21 14:01 | XMS_ITS | Clinical Summary ---
Author Organization [facility] Address [address] [place] [id number] Care Team Providers Care Tour Manager Name Role Phone Pcp, No Primary Care [...] patient's age to complete this topic Insurance [facility] Care Teams Tour Manager Relationship Specialty Start Date End Date Pcp, No [address] [place] [address] PCP - General 02/07/23
--- OUTSIDE RECORDS SUMMARY | 2025-03-21 14:01 | XMS_ITS | Clinical Summary ---
Author Organization [facility] Address [address] [place] [address] Care Team Providers Care Tile Sorter Name Role Phone Renetta Aguero MD Primary [...] Group Subscriber ID Effective Dates Phone Address [facility] [id number] 2022-Re melo [address] [facility] [address] [place] [address] HMO Care Teams Tile Sorter Relationship Specialty Start Date End Date Renetta Aguero MD PCP - General Internal Medicine 11/16/23
--- OUTSIDE RECORDS SUMMARY | 2025-03-21 14:01 | XMS_ITS | Clinical Summary ---
Author Organization [facility] [address] Address [address] [place] [address] Phone Care Team Providers Care Call Center Manager Name Role Phone Renetta Aguero MD Primary Care Provider [phone] Allergies Active Allergy Reactions Criticality Noted Date [...] Department Care Team Description 02/15/2025 Lab Requisition [facility] - Main Lab [address] [place] [id number] Harsha Hurtado MD Gross hematuria 01/28/2025 Telephone Internal Medicine - [place] [address] [place] [address] Blanquita Lemus MA from Last [...] care for your loved ones. For example, early childhood or elderly care for an older adult? [...] - [place] [address] [place] [address] Renetta Aguero MD [address] [place] [address] Health Maintenance Due Date Last Done Comments [...] 12:00 AM EDT) Final Diagnosis Urine, Voided ([id number]): Negative for high grade urothelial carcinoma. Results of UroVysion fluorescence in situ hybridization (FISH) testing: CEP3: Normal CEP7: Normal CEP17: Normal LSI 9p21: Normal Interpretation: Normal profile Controls stained appropriately. Note: The results are intended as a screening device and should be interpreted in association with other clinical and pathological findings. 03/04/2025 12:27 PM EDT [facility] Clinical Information Gross hematuria R31.0 Urine Cytology/FISH (now) 03/04/2025 12:27 PM EDT [facility] Gross Description A. Urine, Voided, ([id number]): Received one ThinPrep slide for cytology and one ThinPrep slide for UroVysion FISH 03/04/2025 12:27 PM EDT [facility] Disclaimer Unless otherwise specified, all tissue is 10% NB formalin fixed and paraffin embedded. Technical pathology services provided by [facility] at [address], [place] [address] (CLIA #[id number]/Tierra Sultana MD, Turret Lathe Set Up Operator) 03/04/2025 12:27 PM EDT [facility] Tissue Urine specimen from urethra / Unknown 02/06/2025 02/15/2025 9:22 AM EDT Harsha Hurtado MD LAB PATHOLOGY ORDERABLES Fi nal Result [facility] [address] [place] [address], * External Mammogram Report (12/21/2024) Anatomical Region Laterality Modality Mammography Provider [facility] IMG BI PROCEDURES Final Result * Annual BMP Blood Test (03/28/2024) Pathologist [facility] Annual BMP Blood Test abstracted Historical Provider HEALTH MAINTENANCE Final Result * Depression Screening (11/16/2023) Depression Screening abstracted Historical Provider HEALTH MAINTENANCE Final Result from Last 3 Months or Most Recently Relevant to Health Maintenance Insurance [facility] Care Teams Call Center Manager Relationship Specialty Start Date End Date Renetta Aguero MD [address] [place] [address] PCP - General 11/16/23
== END 2025-03-21 14:22 | disposition home or self-care (01) ==
LOC: HO.HMCFM 13:49
PROVIDERS: PCP Physician Assistant; Visit Provider Physician Assistant
DX: I10 Essential (primary) hypertension (principal); E66.01 Morbid (severe) obesity due to excess calories; F41.1 Generalized anxiety disorder; R06.81 Apnea, not elsewhere classified; Z68.39 Body mass index [BMI] 39.0-39.9, adult

== ENCOUNTER 2025-03-21 14:27 | Outpatient (REF) | payer OTHER, SELFPAY ==
[2025-03-21 17:53] LABS: Appearance Urine Clear; Glucose Urine UA Negative (Negative); PH 5.5 (5.0-9.0); Specific Gravity - Urine 1.015 (1.005-1.025)
== END 2025-03-21 14:28 | disposition home or self-care (01) ==
LOC: HO.WFDLDS 14:27
PROVIDERS: Visit Provider Physician Assistant
DX: Z13.220 Encounter for screening for lipoid disorders (principal); E66.01 Morbid (severe) obesity due to excess calories; I10 Essential (primary) hypertension; R06.81 Apnea, not elsewhere classified; R53.83 Other fatigue; F41.1 Generalized anxiety disorder; N20.0 Calculus of kidney; Z80.3 Family history of malignant neoplasm of breast; R92.8 Other abnormal and inconclusive findings on diagnostic imaging of breast
CPT/HCPCS: 81003

== ENCOUNTER 2025-05-02 08:53 | Outpatient (AMB) | payer OTHER, SELFPAY ==
[2025-05-02 08:57] VITALS: BP 104/74; PULSE 71; O2SAT 99; BMI 39.1
--- NOTE | 2025-05-02 08:57 | MHC.OFFVIS ---
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 Does feel very tired and not rested. She states that her ex has been told her she has to stop breathing at times and her kids tell her that she snores all the time. HST booked 05/20. Goes to bed around 9:30 gets up at 5:45am. wakes up around 2-3 on occasions. Accompanied by: Self / Same As Patient Allergies cephalexin (From Busuu) Allergy (Mild, Verified 05/02/25 09:00) Hives HPI Comments Details: 44 year old female referred to us for sleep difficulties She snores loudly and wakes up several times a night. Denies morning headaches and bruxism. She feels chronically fatigued and will fall asleep anywhere especially at her desk if sedentary. She goes to bed at 9:30pm, falls asleep at 10pm. Gets up for work at 5:45am with 0-1 bathroom breaks. She does not take anything to help her fall asleep, she does drink 1-2 cups of coffee and 4x a week drinks a Celsius at 2pm to stay awake. She is now on her 3rd subq dose of zepbound 2.5mg weekly and eating less. Mood is good, she takes sertraline daily tried tapering but mood became irritable. 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 She can not focus and remember tasks, will fall asleep anywhere. She does multi-task and feels like she is being pulled in many directions being a single mom. She is scheduled for a HST - on May 20. RLS symptoms of jumpy legs sometimes but usually not. Denies cramps, pins and needles. Bilateral hand cramps, gets numb and cold. Maria C woods in 2021 post covid with shingles in the ear. [facility] Surgical History H/O breast augmentation H/O tubal ligation Family History Mother HTN (hypertension) High blood cholesterol Breast cancer Depression Father HTN (hypertension) High blood cholesterol Lung cancer Alcohol abuse Maternal Grandmother HTN (hypertension) Cardiovascular disease Breast cancer Lung cancer Maternal Grandfather HTN (hypertension) High blood cholesterol Bladder cancer Other FHx: mental illness Substance abuse Social History Housing: Apartment Alcohol intake: current Patient Tobacco Use Status: Never used Tobacco e-Cigarette/Vaping Use: Never Used service: No Current occupational status: employed 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 Current occupational exposures/hazards: No Cognitive needs: No Hearing needs: No Vision needs: No Physical Exam Vital Signs: Last Vital Signs Pulse 71 05/02/25 08:57 BP 104/74 05/02/25 08:57 Pulse Ox 99 05/02/25 08:57 Oxygen Delivery Method Room Air 05/02/25 08:57 BMI result Body Mass Index 39.1 Const General: cooperative, comfortable and no acute distress Nutritional Appearance: obese Orientation/consciousness: patient oriented x3 HEENT Teeth and gingiva: other (mallampti score is 3) Eyes Pupils: Equal, round and reactive pupils present Neck Neck: Yes full ROM Resp Effort & Inspection: normal respiratory effort and able to speak in complete sentences Neuro General: patient oriented x3 and moves all extremities Cranial nerves: Yes Equal, round and reactive pupils present, Yes Normal accommodation reflex present, Yes Normal facial strength present, Yes Midline tongue present, Yes Ability to bilaterally rotate head present and Yes Ability to bilaterally elevate shoulders present Cognition (Neuro): normal cognition Gait exam (Neuro): Normal gait present Motor exam (neuro): 5/5 motor strength present throughout and Normal motor muscle tone present throughout Psych Appearance: grossly normal Mental Status: mental status grossly normal Affect: normal affect Thought content: Normal thought content present Assessment & Plan Assessment & Plan (1) Excessive daytime sleepiness: Code(s): G47.19 - Other hypersomnia Category: Medical (2) Fatigue: Code(s): R53.83 - Other fatigue Category: Medical Qualifiers: Fatigue type: chronic, unspecified Qualified Code(s): R53.82 - Chronic fatigue, unspecified Plan HST r/o franco pending May 20, 2025 Labs r/o fatigue F/U in 3 months Orders: Orders Complete Blood Count no Diff Today G47.19 - Other hypersomnia, R53.83 - Other fatigue Comprehensive Met. Panel Today G47.19 - Other hypersomnia, R53.83 - Other fatigue Hemoglobin A1c Today G47.19 - Other hypersomnia, R53.83 - Other fatigue IRON PROFILE Today G47.19 - Other hypersomnia, G47.9 - Sleep disorder, unspecified, R53.83 - Other fatigue Vitamin B12 and Folate Today G47.19 - Other hypersomnia, R53.83 - Other fatigue TSH reflex Free T4 Today G47.19 - Other hypersomnia, R53.83 - Other fatigue Ferritin Today G47.19 - Other hypersomnia, R53.83 - Other fatigue Methylmalonic Acid Today G47.19 - Other hypersomnia, G47.9 - Sleep disorder, unspecified, R53.83 - Other fatigue Homocysteine Today G47.19 - Other hypersomnia, G47.9 - Sleep disorder, unspecified, R53.83 - Other fatigue Vitamin D 25-OH Total Today G47.19 - Other hypersomnia, R53.83 - Other fatigue Vitamin B6 Today G47.19 - Other hypersomnia, R53.83 - Other fatigue Vitamin B1 Today G47.19 - Other hypersomnia, R53.83 - Other fatigue Patient Instructions: Sleep Hygiene provided: set a scheduled bedtime and wake time to help regulate the circadian rhythm and balance the release of pituitary hormones. Sleep in a dark room, temperatures below 68 degrees, and no devices n bed. Limit caffeinated products 6 hours prior to bed, and limit fluids 2-4 hours prior to bed. Gentle night yoga, diffusing essential oils, and playing soft music can be relaxing. Coding Level of Care Code Est Pt Level 4 (24043) Diagnoses Excessive daytime sleepiness G47.19 Chronic fatigue R53.82 Fatigue type: chronic, unspecified Sleep Questionnaire Difficulty falling asleep: No Number of arousals: 0-1 Snoring: Yes Witnessed apneas: Yes Gasping arousals: Yes Nocturia: No GERD: No Vivid dreams: Yes Acting out dreams: No Abnormal behavior in sleep: No Abnormal movements in sleep: No Morning headaches: No Excessive daytime sleepiness: Yes Daytime naps: No Restless legs: No Hallucinations: No Sleep paralysis: No Drop attacks: No Sleep Study: No CPAP: No
--- OUTSIDE RECORDS SUMMARY | 2025-05-02 10:03 | XMS_ITS | Clinical Summary ---
Author Organization [facility] Address [address] [place] [address] Care Team Providers Care Road Sign Installer Name Role Phone Pcp, No Primary Care [...] series) 2000 Pap Smear (Ages 21-65) 2002 HPV Vaccines (1 - 3-dose SCDM series) 2008 Mammogram 2021 COVID-19 Vaccine ( - 2023- season) 2024 11/25/2020, 11/04/2020 Influenza Vaccine 03/22/2025 06/18/2022, , 05/18/2019, Additional history exists Pneumococcal Vaccine: Pediatric (0-5 Years) and At-Risk Patients (6 to 49 Years) Aged Out No longer eligible based on patient's age to complete this topic Insurance [facility] Care Teams Road Sign Installer Relationship Specialty Start Date End Date Pcp, No [address] [place] [address] PCP - General 02/07/23
--- OUTSIDE RECORDS SUMMARY | 2025-05-02 10:03 | XMS_ITS | Encounter Summary ---
Author Organization [facility] Address [address] [place] [address] Care Team Providers Care Animal Shelter Supervisor Name Role Phone Renetta Aguero MD Primary Care Provider [phone] Encounter Details Date Type Department Care Team (Late st Contact Info) Description 02/15/2025 Lab Requisition [facility] - Main Lab [address] [facility] [place] [address] Harsha Hurtado MD [address] [facility] [address] [place] [address] Gross hematuria Social History Tobacco Use Types Packs/Day Years Used Date Smoking Tobacco: Never Smokeless Tobacco: Never Alcohol Use Standard Drinks/Week Comments Yes 2 [...] for your loved ones. For example, child protection specialist or elderly care for an older [...] on file Sexual Orientation Not on file documented as of this encounter Plan of Treatment Upcoming Encounters Date Type Department Care Team (Late st Contact Info) Description 05/21/2025 8:30 AM EDT Office Visit Internal Medicine - [place] [address] [place] [address] Renetta Aguero MD [address] [place] [address] documented as of this encounter Procedures Procedure Name Priority Date/Time Associated Diagnosis Comments AP OUTSIDE CONSULT Routine 02/06/2025 12 :00 AM EDT Gross hematuria documented in this encounter Results * Anatomic pathology outside consult (02/06/2025 12:00 AM EDT) Final Diagnosis Urine, Voided ([id number]): Negative for high grade urothelial carcinoma. Results of UroVysion fluorescence in situ hybridization (FISH) testing: CEP3: Normal CEP7: Normal CEP17: Normal LSI 9p21: Normal Interpretation: Normal profile Controls stained appropriately. Note: The results are intended as a screening device and should be interpreted in association with other clinical and pathological findings. 03/04/2025 12:27 PM EDT [facility] Clinical Information Gross hematuria R31.0 Urine Cytology/FISH (now) 03/04/2025 12:27 PM EDT [facility] Gross Description A. Urine, Voided, ([id number]): Received one ThinPrep slide for cytology and one ThinPrep slide for UroVysion FISH 03/04/2025 12:27 PM EDT [facility] Disclaimer Unless otherwise specified, all tissue is 10% NB formalin fixed and paraffin embedded. Technical pathology services provided by [facility] at [address] [facility] [address], [place] [address] (CLIA #[id number]/Tierra Sultana MD, It Systems Administrator) 03/04/2025 12:27 PM EDT [facility] Tissue Urine specimen from urethra / Unknown 02/06/2025 02/15/2025 9:22 AM EDT us Harsha Hurtado MD LAB PATHOLOGY ORDERABLES Fi nal Result [facility] [address] [place] [address], documented in this encounter Visit Diagnoses Diagnosis Gross hematuria documented in this encounter Additional Health Concerns Assessment Noted Time PHQ-9 Depression Total Score: 0 11/15/19 25 5:03 PM EDT documented as of this encounter Care Teams Animal Shelter Supervisor Relationship Specialty Start Date End Date Renetta Aguero MD [address] [place] [address] PCP - General 11/16/23 documented as of this encounter
--- OUTSIDE RECORDS SUMMARY | 2025-05-02 10:03 | XMS_ITS | Clinical Summary ---
Author Organization [facility] Address [address] [place] [address] Care Team Providers Care Zinc Plate Cutter Name Role Phone Renetta Aguero MD Primary [...] 2000 Cervical Cancer Screening (Pap Smear) 2002 Depression Screening 11/15/2024 11/16/2023 BMI Counseling 03/28/2025 03/28/2024, 11/21, 11/16/2023 COVID-19 Vaccine ( season) 2025 11/25/2020, 11/04/2020 Influenza Vaccine (#1) 2025 3, 06/18/2022, 06/28/2019, Additional history exists Pneumococcal Vaccine Aged Out No long er eligible based on patient's age to complete this topic RSV Ped < 20 months Aged Out No longe r eligible based on patient's age to complete this topic Insurance Payer Benefit Plan / Group Subscriber ID Effective Dates Phone Address [facility] [id number] 2022-Re melo [address] [facility] [address] [place] [address] HMO Care Teams Zinc Plate Cutter Relationship Specialty Start Date End Date Renetta Aguero MD PCP - General Internal Medicine 11/16/23
--- OUTSIDE RECORDS SUMMARY | 2025-05-02 10:03 | XMS_ITS | Clinical Summary ---
Author Organization [facility] [address] Address [address] [place] [address] Phone Care Team Providers Care Bench Assembler Electrical Name Role Phone Renetta Aguero MD Primary Care Provider [phone] Allergies Active Allergy Reactions Criticality Noted Date [...] Department Care Team Description 02/15/2025 Lab Requisition [facility] - Main Lab [address] [facility] [place] [address] Harsha Hurtado MD Gross hematuria from Last 3 Months Immunizations Name Administration [...] - [address] [place] [address] Renetta Aguero MD [address] [place] [address] Health Maintenance Due Date Last Done Comments Hepatitis B Vaccines (1 of 3 - 19+ 3-dose series) 2000 Cervical Cancer Screening: Pap Smear 2002 Cholesterol Screening (Lipid Panel) 03/20/2024 HIV Screening 03/20/2024 Hepatitis C Screening 03/20/2024 Hypertension/CHF/CAD Annual BMP Blood Test 03/28/2025 03/28/2024, 03/28/2024, 03/28/2024 COVID-19 Vaccine ( season) 2025 11/25/2020, 11/04/2020 Influenza Vaccine (#1) 2025 , 06/18/2022, 06/28/2019, [...] 12:00 AM EDT) Final Diagnosis Urine, Voided ([id number]): Negative for high grade urothelial carcinoma. Results of UroVysion fluorescence in situ hybridization (FISH) testing: CEP3: Normal CEP7: Normal CEP17: Normal LSI 9p21: Normal Interpretation: Normal profile Controls stained appropriately. Note: The results are intended as a screening device and should be interpreted in association with other clinical and pathological findings. 03/04/2025 12:27 PM EDT [facility] ([facility]) [facility] Clinical Information Gross hematuria R31.0 Urine Cytology/FISH (now) 03/04/2025 12:27 PM EDT [facility] ([facility] Gross Description A. Urine, Voided, ([id number]): Received one ThinPrep slide for cytology and one ThinPrep slide for UroVysion FISH 03/04/2025 12:27 PM EDT [facility] Disclaimer Unless otherwise specified, all tissue is 10% NB formalin fixed and paraffin embedded. Technical pathology services provided by [facility] at [address], [place] [address] (CLIA #[id number]/Tierra Sultana MD, Construction Trades Teacher) 03/04/2025 12:27 PM EDT [facility] Tissue Urine specimen from urethra / Unknown 02/06/2025 02/15/2025 9:22 AM EDT Harsha Hurtado MD LAB PATHOLOGY ORDERABLES Fi nal Result [facility] [address] [place] [address], [place] [phone] * External Mammogram Report (12/21/2024) Anatomical Region Laterality Modality Mammography Provider [facility] IMG BI PROCEDURES Final Result * Annual BMP Blood Test (03/28/2024) Annual BMP Blood Test abstracted Historical Provider HEALTH MAINTENANCE Final Result * Depression Screening (11/16/2023) Depression Screening abstracted Historical Provider HEALTH MAINTENANCE Final Result from Last 3 Months or Most Recently Relevant to Health Maintenance Insurance [facility] Care Teams Bench Assembler Electrical Relationship Specialty Start Date End Date Renetta Aguero MD [address] [address] PCP - General 11/16/23
== END 2025-05-02 09:42 | disposition home or self-care (01) ==
LOC: HO.HSMS 08:54
PROVIDERS: PCP Physician Assistant; Visit Provider Physician Assistant Medical
DX: G47.19 Other hypersomnia (principal); R53.82 Chronic fatigue, unspecified
CPT/HCPCS: 99214

== ENCOUNTER 2025-07-11 08:43 | Outpatient (REF) | payer OTHER, SELFPAY ==
[2025-07-11 11:36] LABS: NRBC Abs Auto 0.000 X10*3/uL (0.0-0.012); NRBC Pct Auto 0.0 /100WBC (0.0-0.2); PLT CLUMP 1; SCAN SMEAR FLAG 1
[2025-07-11 11:38] LABS: Hematocrit 39.8 % (37.0-47.0); Hemoglobin 13.5 g/dl (12.0-16.0); Imm Gran Abs Auto 0.02 X10*3/uL (0.00-0.03); Imm Gran Pct Auto 0.3 % (0.0-0.4); Lymphocytes Absolute Auto 2.4 X10*3/uL (1.2-4.9); MANUAL DIFF FLAG SCAN; Mean Corpuscular HGB Conc 33.9 g/dl (31.0-35.0); Mean Corpuscular Hemoglobin 30.8 pg (27.0-33.0); Mean Corpuscular Volume 90.7 fL (80.0-98.0); Red Blood Count 4.39 X10*6/uL (4.20-5.50)
[2025-07-11 11:50] LABS: White Blood Count 7.7 X10*3/uL (4.8-10.8)
[2025-07-11 12:04] LABS: Platelet Count 313 X10*3/uL (160-400)
[2025-07-11 12:25] LABS: Carbon Dioxide 24 mmol/L (22-29); Chloride 109 mmol/L (96-108); Potassium 4.1 mmol/L (3.3-5.1); Sodium 140 mmol/L (135-145)
[2025-07-11 12:26] LABS: Alanine Aminotransferase 17 U/L (0-31); Albumin Level 4.6 g/dL (3.5-5.0); Alkaline Phosphatase 42 U/L (39-117); Anion Gap 11 (12-20); Aspartate Amino Transferase 17 U/L (5-31); Blood Urea Nitrogen 15 mg/dL (9-16); Calcium 9.0 mg/dL (8.4-10.2); Estimated Glomerular Filt Rate > 60; Iron 71 mcg/dL (30-160); Magnesium 1.9 mg/dL (1.6-2.6); Percent Iron Saturation 30 % (15-50); Total Iron Binding Capacity 238 mcg/dL (228-428); Total Protein 7.3 g/dL (6.5-8.0); Unsaturated Iron Binding 167 ug/dL
[2025-07-11 12:30] LABS: Folate 15.6 ng/mL (> or = 4.0); Vitamin B12 485 pg/mL (200-900)
[2025-07-11 12:43] LABS: Ferritin 108 ng/mL (10-250)
--- OUTSIDE RECORDS SUMMARY | 2025-07-11 12:52 | XMS_ITS | Clinical Summary ---
Author Organization [facility] Address [address] [place] [address] Care Team Providers Care Transmission And Coordination Engineer Name Role Phone Renetta Aguero MD Primary [...] Group Subscriber ID Effective Dates Phone Address [facility] [id number] 2022-[address] [facility] [address] [place] [address] HMO Care Teams Transmission And Coordination Engineer Relationship Specialty Start Date End Date Renetta Aguero MD PCP - General Internal Medicine 11/16/23
== END 2025-07-11 08:44 | disposition home or self-care (01) ==
LOC: HO.WFDLDS 08:43
PROVIDERS: PCP Physician Assistant; Referring Provider Physician Assistant Medical; Visit Provider Physician Assistant
DX: I10 Essential (primary) hypertension (principal); G47.19 Other hypersomnia; R53.83 Other fatigue; G47.9 Sleep disorder, unspecified; F41.1 Generalized anxiety disorder; E66.01 Morbid (severe) obesity due to excess calories; Z13.1 Encounter for screening for diabetes mellitus; Z68.37 Body mass index [BMI] 37.0-37.9, adult
CPT/HCPCS: 36415; 80053; 82306; 82607; 82728; 82746; 83036; 83540; 83735; 83921; 84207; 84425; 84443; 85025

== ENCOUNTER 2025-07-11 08:43 | Outpatient (AMB) | payer OTHER, SELFPAY ==
--- NOTE | 2025-07-11 08:47 | MHC.PC.OV ---
Vital Signs 07/11/25 08:51 Height 5 ft 3 in Weight 211 lb BMI 37.4 BP 114/82 Blood Pressure Location Lt brachial Position Sitting Respiration 14 Pulse 87 Pulse Source Pulse Oximeter Temp 97.9 F Temp Source Oral Pulse Oximetry (%) 100 Oxygen Delivery Method Room Air Intake Visit Reasons: med check Intake Note: Medication follow up. Starting the Zepbound 10mg on Tuesday. Senior Construction Manager Required: No Allergies shellfish derived (shellfish) Allergy (Severe, Verified 07/11/25 08:50) Anaphylaxis cephalexin (From Keflex) Allergy (Mild, Verified 07/11/25 08:50) Hives Tobacco use date assessed: 07/11/25 Dental Screening Dental Screen Date: 02/21/25 HPI med check HPI Details Patient is a 44-year-old female with a significant past medical history of hypertension, obesity, generalized anxiety disorder, kidney stones and family history of breast cancer with a recent abnormal breast mammogram presenting today for a follow up. General: She states that she is overall tolerating the Zepbound but sometimes does get nausea and vomiting from it. She says that it is not enough to deter her from wanting to take this. She has lost almost 20 lb with this. She is not experiencing any abdominal pain but she is experiencing decreased appetite. In the past she has tried Ozempic and metformin and has felt very sick with this medication. Ozempic caused nausea and constipation specifically. She is not a good candidate for phentermine given her history of hypertension and anxiety disorder. She is currently well managed with her mental health and would not benefit from Wellbutrin. Breast: Had a recent breast biopsy at the breast center and was told that it was normal. Has a follow up mammogram in 6 months. Uro: History of kidney stones and hematuria. She is following with [facility]. Recently noted to have proteinuria. CV: Blood pressure today in the office is 114/82. On enalapril 5 mg daily. Psych: Well-controlled with sertraline 37.5 mg Tool Room Attendant: Up-to-date Mammo: Up-to-date at [facility], due this month [facility] Surgical History (Updated 07/11/25 @ 08:57 by Tamara López CMA) History of extracorporeal shockwave lithotripsy (ESWL) H/O breast augmentation H/O tubal ligation Family History Mother HTN (hypertension) High blood cholesterol Breast cancer Depression Father HTN (hypertension) High blood cholesterol Lung cancer Alcohol abuse Maternal Grandmother HTN (hypertension) Cardiovascular disease Breast cancer Lung cancer Maternal Grandfather HTN (hypertension) High blood cholesterol Bladder cancer Other FHx: mental illness Substance abuse Social History (Updated 07/11/25 @ 08:57 by Tamara López CMA) Housing: Apartment Alcohol intake: current Patient Tobacco Use Status: Never used Tobacco e-Cigarette/Vaping Use: Never Used service: No Current occupational status: employed 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 Current occupational exposures/hazards: No Cognitive needs: No Hearing needs: No Vision needs: No Questionnaire Thrive Questionnaire Date Thrive assessed: 02/21/25 I am a: Patient What is your living situation today?: I have a steady place to live Within the past 12 months, did the food you bought not last and you didn't have the money to get more?: Never true Within the past 12 months, did you worry whether your food would run out before you got money to buy more?: Never true Do you have trouble paying for medicines?: No Do you have trouble getting transportation to medical appointments?: No Do you have trouble paying your heating and electricity bill?: No Do you have trouble taking care of your child, family member or friend?: No Do you have trouble with day-to-day activities such as bathing, preparing meals, shopping, managing finances, etc.?: No Are you currently unemployed and looking for a job?: No Are you interested in more education?: No Please select the resources that you would like help with: None Currently or been in a relationship where the following occur: No concerns reported THRIVE Score: 0 EVER-7 AMB Questionnaire EVER-7 Date EVER - 7 assessed: 02/21/25 Source: Developed by Drs. Chava Hogan, Maribel More, Otto Ramsey and colleagues, with an educational vinny from [employer]. Physical exam (Primary Care) Vital Signs: Last Vital Signs Temp 97.9 F 07/11/25 08:51 Pulse 87 07/11/25 08:51 Resp 14 07/11/25 08:51 BP 114/82 07/11/25 08:51 Pulse Ox 100 07/11/25 08:51 Oxygen Delivery Method Room Air 07/11/25 08:51 BMI result Body Mass Index 37.4 Tobacco/Smoking Status: Tobacco use Status Tobacco use date assessed 07/11/25 07/11/25 08:57 Patient Tobacco Use Status Never used Tobacco 07/11/25 08:57 e-Cigarette/Vaping Use Never Used 07/11/25 08:57 Thrive Assessment: Date of Thrive Assessment Date Thrive assessed 02/21/25 07/11/25 08:47 Currently or been in a relationship where the following occur: No concerns reported Const Orientation/consciousness: patient oriented x3 HENMT Ears: hearing grossly normal bilaterally Neck Thyroid: Thyroid normal Lymphatic: no lymphadenopathy noted Resp Auscultation: clear to auscultation bilaterally Cardio Rate: regular rate Rhythm: regular rhythm Heart sounds: S1 normal heart sound present and S2 normal heart sound present GI Inspection: Yes normal to inspection Palpation (GI): Soft to palpation and Other GI palpation findings present (nontender, no cva tenderness) Auscultation: normoactive bowel sounds Rectal Exam - Female: deferred Skin General skin exam: no rashes or lesions noted Neuro General: patient oriented x3, gait normal and no focal motor deficits Coding Level of Care Code Est Pt Level 4 (24768) Complex EM visit Add On G2211 Diagnoses HTN (hypertension) I10 Severe obesity (BMI >= 40) E66.01 Generalized anxiety disorder F41.1 Assessment & Plan Assessment & Plan (1) HTN (hypertension): Code(s): I10 - Essential (primary) hypertension Category: Medical Plan: Continue current regimen (2) Severe obesity (BMI >= 40): Code(s): E66.01 - Morbid (severe) obesity due to excess calories Category: Medical Plan: We will increase Zepbound. Discussed risks and benefits and adverse effects of this medication. (3) Generalized anxiety disorder: Code(s): F41.1 - Generalized anxiety disorder Category: Medical Plan: Continue sertraline Plan Labs ordered today. We will follow up pending test results Short term follow up. She will let me know if she does not tolerate the increased dosage of the zepbound Orders: Orders Magnesium Today E66.01 - Morbid (severe) obesity due to excess calories, F41.1 - Generalized anxiety disorder, I10 - Essential (primary) hypertension Complete Blood Count Auto Diff Today E66.01 - Morbid (severe) obesity due to excess calories, F41.1 - Generalized anxiety disorder, I10 - Essential (primary) hypertension Comprehensive [place]. Panel Fast Today E66.01 - Morbid (severe) obesity due to excess calories, F41.1 - Generalized anxiety disorder, I10 - Essential (primary) hypertension Medications: Changed From sertraline 25 mg PO DAILY To sertraline 37.5 mg (1.5 x 25 mg) PO DAILY 135 tabs 3RF 90 days
[2025-07-11 08:51] VITALS: BP 114/82; PULSE 87; RESP 14; TEMP 36.6; O2SAT 100; BMI 37.4
--- OUTSIDE RECORDS SUMMARY | 2025-07-11 09:57 | XMS_ITS | Data Portability ---
Author Organization [place] [facility] Address [address] [place] [address] Care Team Providers Care Cocoa Powder Mixer Operator Name Role Phone ZACK BURDICK Primary Care Provider Assessment Encounter Date Assessment Date Assessment LastModified by Organization Details LastModified Time 08/16/2021 08/16/2021 Proper Personal Protective Equipment (PPE), including gloves, eye protection and masks were donned and doffed appropriately and all equipment cleaned using approved technique with germicidal disposable wipes prior to and after care of this patient according to [facility]'s infection prevention protocols. Overview/History : 40 yo [...] pertinent in my medical decision making today. [email or web address] Not available 08/16/2021 11:21:16 Plan of Treatment Reminders Order Date Submit Date Provider Last Modified By Organization Details Last Modified Time Details Appointments None recorded. Lab None recorded. Referral None recorded. Procedures None recorded. Surgeries None recorded. Imaging None recorded. Medication Orders neomycin-po lymyxin-hyd rocort 3.5 mg-10,000 unit/mL-1 % ear drops,susp 2020 [facility][id number], [address] [place], [address], 11:02:56 doxycycline hyclate 100 mg capsule 2020 [facility][id number], [address] [place], [address], 11:02:56 Patient TargetsNo targets recorded. Patient Instructions Encounter Date Encounter Id Patient Instructions Last Modified By Organization Details Last Modified Time 08/16/2021 [id number] Thank you for yo ur visit with [facility] today. We cannot always find the exact [...] condition between 8am-10pm, please call [facility] at [phone] to help navigate your care. [email or web address] Not available 08/16/2021 10:52:42 Reason for Referral [...] Recorded Body temperature Respiratory rate Oxygen saturation Heart rate Systolic And Diastolic Provider Name and Address Organization Details Last Updated DateTime 1 97.3 [degF] 16 /min 98 % 82 /min 128/80 mm[Hg] Not [...] Diagnosis SNOMED-CT Code Diagnosis ICD10 Code Diagnosis IMO Codes Diagnosis Note [id number] BEREKET Osullivan [facility] [address] [place] [address] [place] [address] 08/16/2021 10:51:21 08/16/2021 11:30:38 Otitis externa of left ear [id number] 504106 H60.92 Acute otitis media 89231 03 H66.92 Health Concerns Section Related Observation LastModified by Organization Sony larry LastModified Time None Recorded Concern Status LastModified by Organization Details LastModified Time None Recorded Advance Directives Directive None Recorded Payers Insurance Date Sequence Insurance Name Policy Number Policy Rao Covered Member ID Rao Member ID Guarantor Name 08/16/2021 1 *SELF PAY* Aleah Padron [id number] Aleah Padron 08/16/2021 1 LEXIE [id number] Chilo Padron [id number] Aleah Padron Notes Date Note Type Note Provider Name and Address Organization Details Recorded Time 08/16/2021 text/html General HPI Template - DHReported by Patient 40 yo female new to provider and DHshe reprots LEFT ear painstarted tuesday (5 days earlier)went to urgent care 3 days agotx her with flonase and sour candiespt feels it is getting worseno fevers chillsno hx of similar symptomshas not had an recent piercings or trauma to the areano swimming BEREKET Osullivan [address], [place], [address], [place] [facility] 08/16/2021 11:21:27 OBGyn Episode No OBEpisode recorded.
--- OUTSIDE RECORDS SUMMARY | 2025-07-11 09:57 | XMS_ITS | Clinical Summary ---
Author Organization [facility] Address [address] [place] [address] Care Team Providers Care Clinical Informatics Strategist Name Role Phone Pcp, No Primary Care [...] Pap Smear (Ages 21-65) 2002 Mammogram 2021 Influenza Vaccine 03/22/2025 06/18/2022, , 05/18/2019, Additional history exists COVID-19 Vaccine ( - 2024- season) 2025 11/25/2020, 11/04/2020 HPV Vaccines (No Doses Required) Completed Pneumococcal Vaccine: Pediatric (0-5 Years) and At-Risk Patients (6 to 49 Years) Aged Out No longer eligible based on patient's age to complete this topic Insurance [facility] Care Teams Clinical Informatics Strategist Relationship Specialty Start Date End Date Pcp, No [address] [place] [address] PCP - General 02/07/23
== END 2025-07-11 09:16 | disposition home or self-care (01) ==
LOC: HO.HMCFM 08:44
PROVIDERS: PCP Physician Assistant; Visit Provider Physician Assistant
DX: I10 Essential (primary) hypertension (principal); E66.01 Morbid (severe) obesity due to excess calories; F41.1 Generalized anxiety disorder; Z68.37 Body mass index [BMI] 37.0-37.9, adult

== ENCOUNTER → 2025-07-23 08:55 | Outpatient (REF) | payer OTHER, SELFPAY ==
--- OUTSIDE RECORDS SUMMARY | 2025-07-23 09:15 | XMS_ITS | Encounter Summary ---
Author Organization [facility] Address [address] [place] [address] Care Team Providers Care Lead Ramp Service Man Name Role Phone Renetta Aguero MD Primary Care Provider [phone] Encounter Details Date Type Department Care Team (Late st Contact Info) Description 02/15/2025 Lab Requisition [facility] - Main Lab [address] [facility] [place] [address] Harsha Hurtado MD [address] [facility] [address] [place] [address] Gross hematuria Social History Tobacco Use Types [...] your loved ones. For example, early childhood education specialist or elderly care for an older [...] Date Recorded What is your living situation? Unrecognized valu e 11/14/2024 Comments Unknown Sex and Gender Information Value Date Recorded Sex Assigned at Not on file Legal Sex Female 4:48 PM EDT Gender Identity Not on file Sexual Orientation Not on file documented as of this encounter Plan of Treatment Not on file documented as of this encounter Procedures Procedure Name Priority Date/Time Associated Diagnosis Comments AP OUTSIDE CONSULT Routine 02/06/2025 12 :00 AM EDT Gross hematuria documented in this encounter Results * Anatomic pathology outside consult (02/06/2025 12:00 AM EDT) Final Diagnosis Urine, Voided ([id number]): Negative for high grade urothelial carcinoma. Results of UroVysion fluorescence in situ hybridization (FISH) testing: CEP3: Normal CEP7: Normal CEP17: Normal LSI 9p21: Normal Interpretation: Normal profile Controls stained appropriately. Note: The results are intended as a screening device and should be interpreted in association with other clinical and pathological findings. 03/04/2025 12:27 PM EDT [facility] at 1227 EDT Clinical Information Gross hematuria R31.0 Urine Cytology/FISH (now) 03/04/2025 12:27 PM EDT [facility] Gross Description A. Urine, Voided, ([id number]): Received one ThinPrep slide for cytology and one ThinPrep slide for UroVysion FISH 03/04/2025 12:27 PM EDT [facility] Disclaimer Unless otherwise specified, all tissue is 10% NB formalin fixed and paraffin embedded. Technical pathology services provided by [facility] at [address], [place] [address] (CLIA #[id number]/Tierra Sultana MD, Knife Machine Operator) 03/04/2025 12:27 PM EDT [facility] Tissue Urine specimen from urethra / Unknown 02/06/2025 02/15/2025 9:22 AM EDT us Harsha Hurtado MD LAB PATHOLOGY ORDERABLES Fi nal Result [facility] [address] [place] [address], documented in this encounter Visit Diagnoses Diagnosis Gross hematuria documented in this encounter Additional Health Concerns Assessment Noted Time PHQ-9 Depression Total Score: 0 11/15/19 25 5:03 PM EDT documented as of this encounter Care Teams Lead Ramp Service Man Relationship Specialty Start Date End Date Renetta Aguero MD [address] [place] [address] PCP - General 11/16/23 documented as of this encounter
--- OUTSIDE RECORDS SUMMARY | 2025-07-23 09:15 | XMS_ITS | Clinical Summary ---
Author Organization [facility] Address [address] [place] [address] Care Team Providers Care Butcher All Round Name Role Phone Renetta Aguero MD Primary [...] Group Subscriber ID Effective Dates Phone Address [facility] [id number] 2022-Re [address] [facility] [address] [place] [address] HMO Care Teams Butcher All Round Relationship Specialty Start Date End Date Renetta Aguero MD PCP - General Internal Medicine 11/16/23
--- OUTSIDE RECORDS SUMMARY | 2025-07-23 09:15 | XMS_ITS | Clinical Summary ---
Author Organization [facility] [address] Address [address] [place] [address] Phone Care Team Providers Care Customer Service Receptionist Name Role Phone Renetta Aguero MD Primary Care Provider [phone] Allergies Active Allergy Reactions Criticality Noted Date [...] Generalized anxiety disorder 11/15/2024 Primary hypertension 11/15/2024 Immunizations Immunization Administration Dates Next Due Influenza Whole 05/18/2019 [...] care for your loved ones. For example, attendant children's institution or elderly care for an older adult? [...] 11/15/2024 8:20 AM EDT Plan of Treatment Health Maintenance Due Date Last Done Comments Hepatitis B Vaccines (1 of 3 - 19+ 3-dose series) 2000 Cervical Cancer Screening: Pap Smear 2002 HPV Vaccines (1 - 3-dose SCDM series) 2008 Cholesterol Screening (Lipid Panel) 03/20/2024 HIV Screening 03/20/2024 Hepatitis C Screening 03/20/2024 Hypertension/CHF/CAD Annual BMP Blood Test 03/28/2025 03/28/2024, 03/28/2024, 03/28/2024 COVID-19 Vaccine ( season) 2025 11/25/2020, 11/04/2020 Influenza Vaccine (#1) 2025 , 06/18/2022, 06/28/2019, Additional history exists Social Influencers of Health Screening 11/14/2025 11/14/2024 Breast Cancer Screening 12/21/2026 12/21/2024 DTaP,Tdap,and Td Vaccines (3 - Td or Tdap) 07/19/2033 07/19/2023, 10/21/2011 RSV Immunization Adult Patients (1 - 1-dose 75+ series) 2056 Depression Screening Completed 11/14/2024, 11/16/19 HIB Vaccines Aged Out No longer eligi [...] Procedure Name Priority Date/Time Associated Diagnosis Comments EXTERNAL MAMMOGRAM REPORT 12/21/2024 ANNUAL BMP BLOOD TEST Routine 03/28/2024 DEPRESSION SCREENING Routine 11/16/2023 from Last 3 Months or Most Recently Relevant to Health Maintenance Results * External Mammogram Report (12/21/2024) Anatomical Region Laterality Modality Mammography Provider [facility] IMG BI PROCEDURES Final Result * Annual BMP Blood Test (03/28/2024) Annual BMP Blood Test abstracted Historical Provider HEALTH MAINTENANCE Final Result * Depression Screening (11/16/2023) Depression Screening abstracted Historical Provider HEALTH MAINTENANCE Final Result from Last 3 Months or Most Recently Relevant to Health Maintenance Insurance [facility] Care Teams Customer Service Receptionist Relationship Specialty Start Date End Date Renetta Aguero MD [address] [place] [address] PCP - General 11/16/23
--- OUTSIDE RECORDS SUMMARY | 2025-07-23 09:15 | XMS_ITS | Data Portability ---
Author Organization [place] - [facility] Address [address] [place] [address] Care Team Providers Care Uniform Designer Name Role Phone ZACK BURDICK Primary Care Provider Assessment Encounter Date Assessment Date Assessment LastModified by Organization Details LastModified Time 08/16/2021 08/16/2021 Proper Personal Protective Equipment (PPE), including gloves, eye protection and masks were donned and doffed appropriately and all equipment cleaned using approved technique with germicidal disposable wipes prior to and after care of this patient according to [facility]'s infection prevention protocols. Overview/History : 40 [...] pertinent in my medical decision making today. [email or web address] Not available 08/16/2021 11:21:16 Plan of Treatment Reminders Order Date Submit Date Provider Last Modified By Organization Details Last Modified Time Details Appointments None recorded. Lab None recorded. Referral None recorded. Procedures None recorded. Surgeries None recorded. Imaging None recorded. Medication Orders neomycin-po lymyxin-hyd rocort 3.5 mg-10,000 unit/mL-1 % ear drops,susp 2020 [facility]/Pharmacy #[id number], [address] [place], [address], 11:02:56 doxycycline hyclate 100 mg capsule 2020 [facility]/Pharmacy #[id number], [address] [place], [address], 11:02:56 Patient TargetsNo targets recorded. Patient Instructions Encounter Date Encounter Id Patient Instructions Last Modified By Organization Details Last Modified Time 08/16/2021 [id number] Thank you for yo ur visit with [facility] today. We cannot always find the [...] in your condition between 8am-10pm, please call [facility] at [phone] to help navigate your care. Not available 08/16/2021 10:52:42 Reason for Referral [...] ICD10 Code Diagnosis IMO Codes Diagnosis Note [id number] BEREKET Osullivan [facility] - HOME [address] [place] [address] [place] [address] 08/16/2021 10:51:21 08/16/2021 11:30:38 Otitis externa of left ear [id number] 444717 H60.92 Acute otitis media 32762 03 H66.92 Health Concerns Section Related Observation LastModified by Organization Sony larry LastModified Time None Recorded Concern Status LastModified by Organization Details LastModified Time None Recorded Advance Directives Directive None Recorded Payers Insurance Date Sequence Insurance Name Policy Number Policy Rao Covered Member ID Rao Member ID Guarantor Name 08/16/2021 1 *SELF PAY* Aleah Padron [id number] Aleah Padron 08/16/2021 1 LEXIE [id number] Chilo Padron [id number] Aleah Padron Notes Date Note Type Note [...] areano swimming BEREKET Osullivan [address], [place], [address], [place] [facility] 08/16/2021 11:21:27 OBGyn Episode No OBEpisode recorded.
--- OUTSIDE RECORDS SUMMARY | 2025-07-23 09:15 | XMS_ITS | Clinical Summary ---
Author Organization [facility] Address [address] [place] [address] Care Team Providers Care Regional Sales Manager Name Role Phone Pcp, No Primary [...] patient's age to complete this topic Insurance [facility] Care Teams Regional Sales Manager Relationship Specialty Start Date End Date Pcp, No [address] [place] [address] PCP - General 02/07/23
== END ==
LOC: HO.SL 08:55
PROVIDERS: Absent Provider Physician Assistant Medical; PCP Physician Assistant; Visit Provider Physician Assistant
DX: R53.83 Other fatigue (principal); G47.9 Sleep disorder, unspecified; G47.19 Other hypersomnia; R06.81 Apnea, not elsewhere classified
CPT/HCPCS: 36415; 83090; 95806

== ENCOUNTER → 2025-07-23 09:16 | Outpatient (BNV) | payer OTHER, SELFPAY | PROVIDERS: Absent Provider Physician Assistant Medical; PCP Physician Assistant; Visit Provider Psychiatry & Neurology Neurology | DX: G47.33 Obstructive sleep apnea (adult) (pediatric) (principal) | CPT/HCPCS: 95806 ==

== ENCOUNTER 2025-08-13 13:56 | Outpatient (AMB) | payer OTHER, SELFPAY ==
[2025-08-13 14:01] VITALS: BP 112/80; PULSE 88; O2SAT 97; BMI 37.5
--- NOTE | 2025-08-13 14:01 | A.OFFVIS_ITS ---
Vital Signs 08/13/25 14:01 Height 5 ft 3 in Weight 211 lb 8 oz BMI 37.5 BP 112/80 Blood Pressure Location Rt brachial Position Sitting Pulse 88 Pulse Source Pulse Oximeter Pulse Oximetry (%) 97 Oxygen Delivery Method Room Air Intake Visit Reasons: 2 mo follow up Intake Note: Patient presents follow up DANDRE. 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 HST reviewed with pt. AHI is 14/hr c/w mild dandre, and O2 desaturation below 90% for 2% of total sleep time. Airfit full face medium sized mask, N30i with chin straps, and humidification hoses. Vitamin D and magnesium She snores loudly and wakes up several times a night. Denies morning headaches and bruxism. Chronic fatigue continues to improve, as she is losing weight, 20lbs since Apr 2025 on zepbound therapy. She goes to bed at 7-9:30pm, falls asleep at 10pm. Gets up for work at 5:45am with 0-1 bathroom breaks. She does not take anything to help her fall asleep, she does drink 1-2 cups of coffee, no longer drinking celsius to stay awake. Mood is managed on sertraline daily tried tapering but became irritable. Memory is poor she has trouble driving at night as she feels like she is on auto-pilot captain. She can not focus and remember tasks if they are not written down. She multi-tasks and feels like she is being pulled in many directions, as she is a single mom. Bilateral hand cramps, gets numb and cold. RLS symptoms of jumpy, twitching in legs bilaterally sometimes, but usually. Denies cramps, spasms, paresthesias. Maria C woods in 2021 post covid with shingles in the ear. [facility] Surgical History History of extracorporeal shockwave lithotripsy (ESWL) H/O breast augmentation H/O tubal ligation Family History Mother HTN (hypertension) High blood cholesterol Breast cancer Depression Father HTN (hypertension) High blood cholesterol Lung cancer Alcohol abuse Maternal Grandmother HTN (hypertension) Cardiovascular disease Breast cancer Lung cancer Maternal Grandfather HTN (hypertension) High blood cholesterol Bladder cancer Other FHx: mental illness Substance abuse Social History Housing: Apartment Alcohol intake: current Patient Tobacco Use Status: Never used Tobacco e-Cigarette/Vaping Use: Never Used service: No Current occupational status: employed 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 Current occupational exposures/hazards: No Cognitive needs: No Hearing needs: No Vision needs: No Physical Exam Vital Signs: Last Vital Signs Pulse 88 08/13/25 14:01 BP 112/80 08/13/25 14:01 Pulse Ox 97 08/13/25 14:01 Oxygen Delivery Method Room Air 08/13/25 14:01 BMI result Body Mass Index 37.5 Const General: cooperative, comfortable and no acute distress Nutritional Appearance: obese Orientation/consciousness: patient oriented x3 HEENT Teeth and gingiva: other (mallampti score is 3) Eyes Pupils: Equal, round and reactive pupils present Neck Neck: Yes full ROM Resp Effort & Inspection: normal respiratory effort and able to speak in complete sentences Neuro General: patient oriented x3 and moves all extremities Cranial nerves: Yes Equal, round and reactive pupils present, Yes Normal accommodation reflex present, Yes Normal facial strength present, Yes Midline tongue present, Yes Ability to bilaterally rotate head present and Yes Ability to bilaterally elevate shoulders present Cognition (Neuro): normal cognition Gait exam (Neuro): Normal gait present Motor exam (neuro): 5/5 motor strength present throughout and Normal motor muscle tone present throughout Psych Appearance: grossly normal Mental Status: mental status grossly normal Affect: normal affect Thought process: Normal thought process present Thought content: Normal thought content present Results Reviewed Results Reviewed: HST reviewed with pt. AHI is 14/hr c/w mild dandre, and O2 desaturation below 90% for 2% of total sleep time. Airfit full face medium sized mask, N30i with chin straps, humidification hoses. labs reviewed with pt. Assessment & Plan Assessment & Plan (1) Excessive daytime sleepiness: Code(s): G47.19 - Other hypersomnia Category: Medical (2) Fatigue: Code(s): R53.83 - Other fatigue Category: Medical Qualifiers: Fatigue type: chronic, unspecified Qualified Code(s): R53.82 - Chronic fatigue, unspecified (3) Loud snoring: Code(s): R06.83 - Snoring Category: Medical Plan HST reviewed with pt. AHI is 14/hr c/w mild dadnre, and O2 desaturation below 90% for 2% of total sleep time. Airfit full face medium sized mask, N30i with chin straps, and humidification hoses. Labs reviewed with pt B12 is normal, Ferritin is normal, Vitamin D is low she started 1000units Vit D daily at bedtime RLS symptoms will monitor she started magnesium 200-400mg po daily at bedtime. F/U in 3 months Coding Level of Care Code Est Pt Level 4 (62192) Diagnoses Excessive daytime sleepiness G47.19 Chronic fatigue R53.82 Fatigue type: chronic, unspecified Loud snoring R06.83
--- OUTSIDE RECORDS SUMMARY | 2025-08-13 15:13 | XMS_ITS | Clinical Summary ---
Author Organization [facility] Address [address] [place] [address] Care Team Providers Care Tenter Name Role Phone Pcp, No Primary Care [...] patient's age to complete this topic Insurance [facility] Care Teams Tenter Relationship Specialty Start Date End Date Pcp, No [address] [place] [address] PCP - General 02/07/23
--- OUTSIDE RECORDS SUMMARY | 2025-08-13 15:13 | XMS_ITS | Encounter Summary ---
Author Organization [facility] Address [address] [place] [address] Care Team Providers Care Radiation Therapy Technologist Name Role Phone Renetta Aguero MD Primary Care Provider [phone] Encounter Details Date Type Department Care Team (Late st Contact Info) Description 02/15/2025 Lab Requisition [facility] - Main Lab [address] [facility] [place] [address] Harsha Hurtado MD [address] [facility] [address] [place] [address] Gross hematuria Social History Tobacco Use Types [...] care for your loved ones. 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 [...] 12:00 AM EDT) Final Diagnosis Urine, Voided ([id number]): Negative for high grade urothelial carcinoma. Results of UroVysion fluorescence in situ hybridization (FISH) testing: CEP3: Normal CEP7: Normal CEP17: Normal LSI 9p21: Normal Interpretation: Normal profile Controls stained appropriately. Note: The results are intended as a screening device and should be interpreted in association with other clinical and pathological findings. 03/04/2025 12:27 PM EDT [facility] at 1227 EDT Clinical Information Gross hematuria R31.0 Urine Cytology/FISH (now) 03/04/2025 12:27 PM EDT [facility] Gross Description A. Urine, Voided, ([id number]): Received one ThinPrep slide for cytology and one ThinPrep slide for UroVysion FISH 03/04/2025 12:27 PM EDT [facility] Disclaimer Unless otherwise specified, all tissue is 10% NB formalin fixed and paraffin embedded. Technical pathology services provided by [facility] at [address], [place] [address] (CLIA #[id number]/Tierra Sultana MD, Supervisor Plastics) 03/04/2025 12:27 PM EDT [facility] Tissue Urine specimen from urethra / Unknown 02/06/2025 02/15/2025 9:22 AM EDT us Harsha Hurtado MD LAB PATHOLOGY ORDERABLES Fi nal Result [facility] [address] [place] [address], documented in this encounter Visit Diagnoses Diagnosis Gross hematuria documented in this encounter Additional Health Concerns Assessment Noted Time PHQ-9 Depression Total Score: 0 11/15/19 25 5:03 PM EDT documented as of this encounter Care Teams Radiation Therapy Technologist Relationship Specialty Start Date End Date Renetta Aguero MD [address] [place] [address] PCP - General 11/16/23 documented as of this encounter
--- OUTSIDE RECORDS SUMMARY | 2025-08-13 15:13 | XMS_ITS | Clinical Summary ---
Author Organization [facility] [address] Building Address [address] [place] [address] Phone Care Team Providers Care Aquatic Biologist Name Role Phone Renetta Aguero MD Primary Care Provider [phone] Allergies Active Allergy Reactions Criticality Noted Date [...] (12/21/2024) Anatomical Region Laterality Modality Mammography Provider [place] [facility] IMG BI PROCEDURES Final Result * Annual BMP Blood Test (03/28/2024) Annual BMP Blood Test abstracted Historical Provider HEALTH MAINTENANCE Final Result * Depression Screening (11/16/2023) Depression Screening abstracted Historical Provider HEALTH MAINTENANCE Final Result from Last 3 Months or Most Recently Relevant to Health Maintenance Insurance [facility] Care Teams Aquatic Biologist Relationship Specialty Start Date End Date Renetta Aguero MD [address] [place] [address] PCP - General 11/16/23
--- OUTSIDE RECORDS SUMMARY | 2025-08-13 15:13 | XMS_ITS | Clinical Summary ---
Author Organization [facility] Prior to 01/19/25 Address [address] [place] [address] Care Team Providers Care Operations Architect Name Role Phone Renetta Aguero MD Primary [...] Group Subscriber ID Effective Dates Phone Address [facility] [id number] 2022-Re melo [address] [facility] [address] [place] [address] O Care Teams Operations Architect Relationship Specialty Start Date End Date Renetta Aguero MD PCP - General Internal Medicine 11/16/23
--- OUTSIDE RECORDS SUMMARY | 2025-08-13 15:13 | XMS_ITS | Data Portability ---
Author Organization [place] [facility] Address [address] [place] [address] Care Team Providers Care Pediatric Cardiologist Name Role Phone ZACK BURDICK Primary Care Provider [phone] Assessment Encounter Date Assessment Date Assessment LastModified by Organization Details LastModified Time 08/16/2021 08/16/2021 Proper Personal Protective Equipment (PPE), including gloves, eye protection and masks were donned and doffed appropriately and all equipment cleaned using approved technique with germicidal disposable wipes prior to and after care of this patient according to [facility]'s infection prevention protocols. Overview/History : 40 yo [...] pertinent in my medical decision making today. [email or web address] Not available 08/16/2021 11:21:16 Plan of Treatment Reminders Order Date Submit Date Provider Last Modified By Organization Details Last Modified Time Details Appointments None recorded. Lab None recorded. Referral None recorded. Procedures None recorded. Surgeries None recorded. Imaging None recorded. Medication Orders neomycin-po lymyxin-hyd rocort 3.5 mg-10,000 unit/mL-1 % ear drops,susp 2020 [facility]/Pharmacy #[id number], [address] [place], [address], 11:02:56 doxycycline hyclate 100 mg capsule 2020 [facility]/Pharmacy #[id number], [address] [place], [address], 11:02:56 Patient TargetsNo targets recorded. Patient Instructions Encounter Date Encounter Id Patient Instructions Last Modified By Organization Details Last Modified Time 08/16/2021 [id number] Thank you for yo ur visit with [facility] today. We cannot always find the exact [...] between 8am-10pm, please call [facility] at [phone] to help navigate your care. [email or web address] Not available 08/16/2021 10:52:42 Reason for Referral [...] ICD10 Code Diagnosis IMO Codes Diagnosis Note [id number] BEREKET Osullivan [facility] - HOME [address] [place] [address] [place] [address] 08/16/2021 10:51:21 08/16/2021 11:30:38 Otitis externa of left ear [id number] 513183 H60.92 Acute otitis media 70742 03 H66.92 Health Concerns Section Related Observation LastModified by Organization Sony larry LastModified Time None Recorded Concern Status LastModified by Organization Details LastModified Time None Recorded Advance Directives Directive None Recorded Payers Insurance Date Sequence Insurance Name Policy Number Policy Rao Covered Member ID Rao Member ID Guarantor Name 08/16/2021 1 *SELF PAY* Aleah Padron [id number] Aleah Padron 08/16/2021 1 LEXIE [id number] Chilo Padron [id number] Aleah Padron Notes Date Note Type Note [...] areano swimming BEREKET Osullivan [address], [place], [address], [place] [facility] 08/16/2021 11:21:27 OBGyn Episode No OBEpisode recorded.
== END 2025-08-13 14:31 | disposition home or self-care (01) ==
LOC: HO.HSMS 13:57
PROVIDERS: PCP Physician Assistant; Visit Provider Physician Assistant Medical
DX: G47.19 Other hypersomnia (principal); R53.82 Chronic fatigue, unspecified; R06.83 Snoring
CPT/HCPCS: 99214